=== PATIENT | female | born 1940 | race Hispanic/Latino ===

== ENCOUNTER 2019-12-24 07:11 | Emergency (ER) | payer OTHER ==
[~2019-12-24 07:11] MED LIST: BUDE10.2 IH; CALC-979 PO; DICY20TA11 PO; FLAX SEED PO; FURO20TA4 PO; HYDR-4064 PO; OMEP40CA13 PO; QUIN324C10 PO; SIMV10TA97 PO; VITAMIN D PO
[2019-12-24 07:44] LABS: BASOPHILS % (AUTO) 0.6 % (0.0-5.0); EOSINOPHILS % (AUTO) 3.1 % (0.0-8.0); HEMATOCRIT 36.2 % (36-48); MEAN CORPUSCULAR HEMOGLOBIN 30.4 pg (27.0-33.0); MEAN CORPUSCULAR VOLUME 94.8 fL (79-99); PLATELET COUNT (AUTO) 180 K/uL (130-400); RED BLOOD CELL COUNT(AUTO) 3.82 MIL/uL (4.00-5.50); RED CELL DISTRIBUTION WIDTH 14.4 % (11.0-15.5); WHITE BLOOD COUNT (AUTO) 6.2 K/uL (4.8-10.8)
[2019-12-24 07:52] LABS: CREATININE 1.1 mg/dL (0.5-1.5); POTASSIUM 4.4 mmol/L (3.5-5.1)
[2019-12-24 07:59] LABS: ALBUMIN 3.4 g/dL (3.5-5.0); BILIRUBIN,TOTAL 0.9 mg/dL (0.2-1.0); PARTIAL THROMBOPLASTIN TIME 24.7 SEC (26.3-35.5); PROTHROMBIN TIME 10.5 SEC (9.6-11.6); TOTAL PROTEIN, SERUM 6.9 g/dL (6.0-8.3)
[2019-12-24 08:49] LABS: APPEARANCE,URINE Clear (CLEAR); BILIRUBIN,URINE Negative (NEGATIVE); COLOR,URINE Yellow (YELLOW); GLUCOSE, URINE (UA) Negative (NEGATIVE); KETONES,URINE Negative (NEGATIVE); LEUKOCYTE ESTERASE ,URINE Moderate (NEGATIVE); NITRATE,URINE Negative (NEGATIVE); OCCULT BLOOD,URINE Small (NEGATIVE); PROTEIN,URINE Negative (NEGATIVE)
[2019-12-24 09:19] LABS: BACTERIA,URINE Rare /HPF (None Seen); SQUAMOUS EPITHELIAL CELL,UR Rare /HPF (0-2); WBC,URINE 0-1 /HPF (0-1)
[2019-12-24] MEDS ORDERED: ACETAMINOPHEN EXTRA STRENGTH 500 MG TABLET ONE (09:29)
[2019-12-24] MEDS ORDERED: CEPHALEXIN 500 MG CAPSULE ONE (09:29)
[2019-12-24] MEDS ORDERED: TETANUS/DIPHTHERIA TOXOID [ADULT] 0.5 ML VIAL IM ONE (09:30)
== END 2019-12-24 10:09 | disposition home or self-care (01) ==
LOC: EDH 07:11
DX: S00.10XA Contusion of unspecified eyelid and periocular area, initial encounter (principal); S00.81XA Abrasion of other part of head, initial encounter; N39.0 Urinary tract infection, site not specified; J45.909 Unspecified asthma, uncomplicated; K21.9 Gastro-esophageal reflux disease without esophagitis; W18.39XA Other fall on same level, initial encounter; Y93.89 Activity, other specified; Y92.89 Other specified places as the place of occurrence of the external cause; Y99.8 Other external cause status
CPT/HCPCS: 36415; 70450; 70486; 72125; 80053; 81001; 82550; 84484; 85025; 85610; 85730; 87088; 90471; 90714; 93005

== ENCOUNTER 2021-03-04 10:00 | Inpatient (IN) | payer MEDICARE ==
[~2021-03-04 10:00] MED LIST changes: -BUDE10.2 IH; -CALC-979 PO; -DICY20TA11 PO; -FLAX SEED PO; -FURO20TA4 PO; -HYDR-4064 PO; -QUIN324C10 PO; -SIMV10TA97 PO
[2021-03-04 10:51] LABS: APPEARANCE,URINE Clear (CLEAR); BILIRUBIN,URINE Negative (NEGATIVE); COLOR,URINE Yellow (YELLOW); GLUCOSE, URINE (UA) Negative (NEGATIVE); KETONES,URINE Negative (NEGATIVE); LEUKOCYTE ESTERASE ,URINE Moderate (NEGATIVE); NITRATE,URINE Negative (NEGATIVE); OCCULT BLOOD,URINE Nonhemolyzed Trace (NEGATIVE); PROTEIN,URINE Negative (NEGATIVE)
[2021-03-04 10:53] LABS: BASOPHILS % (AUTO) 0.8 % (0.0-5.0); EOSINOPHILS % (AUTO) 0.8 % (0.0-8.0); HEMATOCRIT 35.5 % (36-48); LYMPHOCYTES % (AUTO) 32.2 % (21.0-51.0); MEAN CORPUSCULAR HEMOGLOBIN 31.5 pg (27.0-33.0); MEAN CORPUSCULAR HGB CONC 32.1 g/dL (32.0-36.0); MEAN CORPUSCULAR VOLUME 98.1 fL (79-99); MONOCYTES % (AUTO) 7.6 % (3.0-13.0); NEUTROPHILS % (AUTO) 58.4 % (40.0-77.0); PLATELET COUNT (AUTO) 188 K/uL (130-400); RED BLOOD CELL COUNT(AUTO) 3.62 MIL/uL (4.00-5.50); WHITE BLOOD COUNT (AUTO) 6.2 K/uL (4.8-10.8)
[2021-03-04 11:03] LABS: INR 1.09 (0.85-1.15); POTASSIUM 4.3 mmol/L (3.5-5.1); PROTHROMBIN TIME 11.2 SEC (9.6-11.6)
[2021-03-04 11:35] LABS: BACTERIA,URINE Rare /HPF (None Seen); SQUAMOUS EPITHELIAL CELL,UR Rare /HPF (0-2); WBC,URINE 0-1 /HPF (0-1)
[2021-03-05 12:42] VITALS: BP 152/60
[2021-03-05] MEDS ORDERED: RIVA3CAP17 PO (15:38)
[2021-03-05] MEDS ORDERED: ASCO100031 PO (15:38)
[2021-03-05] MEDS ORDERED: LOSA25TA41 PO (15:38)
[2021-03-05] MEDS ORDERED: ONDA4TAB4 PO (15:38)
[2021-03-05] MEDS ORDERED: TYLENOL ARTHRITIS PO (15:38)
[2021-03-05] MEDS ORDERED: HYDR-4377 PO (15:38)
[2021-03-05] MEDS ORDERED: ZINC220T4 PO (15:38)
[2021-03-05] MEDS ORDERED: MULT-1296 PO (15:38)
[2021-03-08] VITALS (20 sets, daily range): BP systolic 99–127; BP diastolic 48–86
[2021-03-08] MEDS: CEFAZOLIN SODIUM 1 GM VIAL IVP SCH ×2 (06:00→16:20)
[2021-03-08] MEDS ORDERED: LACTATED RINGERS 1000ML 1,000 ML IV ONE (11:34)
[2021-03-08] MEDS: GENTAMICIN SULFATE 240 MG in SODIUM CHLORIDE 0.9% 100 ML IV SCH (12:57)
[2021-03-08] MEDS ORDERED: DEXAMETHASONE SOD PHOSPHATE 10MG/ML 1ML VIAL ONE (13:31)
[2021-03-08] MEDS ORDERED: LIDOCAINE PF 2% 5ML ABBOJECT ONE (13:31)
[2021-03-08] MEDS ORDERED: PROPOFOL 10 MG/ML 20ML VIAL IV ONE (13:31)
[2021-03-08] MEDS ORDERED: SUCCINYLCHOLINE CHLORIDE 20 MG/ML 10 ML VIAL ONE (13:31)
[2021-03-08] MEDS ORDERED: GLYCOPYRROLATE 1 MG/5 ML SYRINGE ONE (13:32)
[2021-03-08] MEDS ORDERED: MIDAZOLAM HCL 1 MG/ML 2ML VIAL ONE (13:32)
[2021-03-08] MEDS ORDERED: ROCURONIUM 10MG/1ML SYR 10 MG/ML ML ONE ×2 (13:33→16:20)
[2021-03-08] MEDS ORDERED: NEOSTIGMINE 5MG/5ML SYR IV ONE (13:33)
[2021-03-08] MEDS ORDERED: ONDANSETRON HCL 4 MG/2 ML VIAL ONE (13:33)
[2021-03-08] MEDS ORDERED: FENTANYL CITRATE PF 50 MCG/1 ML 2ML VIAL ONE (13:33)
[2021-03-08] MEDS ORDERED: ROPIVACAINE 0.5% 5MG/ML 30ML IJ ONE ×2 (13:34→16:20)
[2021-03-08] MEDS ORDERED: CEFAZOLIN SODIUM 1 GM VIAL ONE (13:56)
[2021-03-08] MEDS ORDERED: CELECOXIB 200 MG CAP ONE (13:57)
[2021-03-08] MEDS ORDERED: ACETAMINOPHEN EXTRA STRENGTH 500 MG TABLET ONE (13:57)
[2021-03-08] MEDS ORDERED: TRANEXAMIC ACID 1000MG/10ML ONE ×2 (15:15→20:48)
[2021-03-08] MEDS ORDERED: CEFAZOLIN SODIUM 1 GM VIAL IRRIG ONE (17:00)
[2021-03-08] MEDS ORDERED: EPHEDRINE SULFATE 50 MG/ML AMPULE ONE (17:15)
[2021-03-08] MEDS ORDERED: TEMAZEPAM 15 MG CAPSULE PO PRN (20:15)
[2021-03-08] MEDS ORDERED: KETOROLAC TROMETHAMINE 15MG/ML IV PRN (20:15)
[2021-03-08] MEDS ORDERED: SODIUM CHLORIDE 0.9% 1000ML 1,000 ML IV SCH (20:15)
[2021-03-08] MEDS ORDERED: CALCIUM CARBONATE 500 MG TABLET PO PRN (20:15)
[2021-03-08] MEDS ORDERED: OXYCODONE HCL 5 MG TAB PO PRN (20:15)
[2021-03-08] MEDS ORDERED: FE FUMARATE/FA/MV, MIN COMB#15 1 TAB PO PRN (20:15)
[2021-03-08] MEDS ORDERED: ONDANSETRON HCL 4 MG/2 ML VIAL IVP PRN (20:15)
[2021-03-08] MEDS ORDERED: DiphenhydrAMINE HCL 50 MG/ML VIAL IVP PRN (20:15)
[2021-03-08] MEDS ORDERED: POTASSIUM CHLORIDE 20 MEQ ERTAB PO PRN (20:15)
[2021-03-08] MEDS ORDERED: LIDOCAINE HCL-MPF 1% 2ML VIAL IV PRN (20:15)
[2021-03-08] MEDS ORDERED: POTASSIUM CHLORIDE 10% ELIXIR 20 MEQ/15 ML UDCUP PO PRN (20:15)
[2021-03-08] MEDS ORDERED: POTASSIUM CHLORIDE 20MEQ/100ML 100 ML IV PRN (20:15)
[2021-03-08] MEDS ORDERED: TRAMADOL HCL 50 MG TABLET PO PRN (20:15)
[2021-03-08] MEDS ORDERED: MEPERIDINE-PF 25 MG/ML SYG ONE (21:01)
[2021-03-08] MEDS: ASPIRIN 81MG TAB.CHEW PO SCH (22:38)
[2021-03-08] MEDS: CELECOXIB 200 MG CAP PO SCH (22:39)
[2021-03-08] MEDS: PREGABALIN 25 MG CAP PO SCH (22:39)
[2021-03-08] MEDS: ACETAMINOPHEN EXTRA STRENGTH 500 MG TABLET PO SCH (22:40)
[2021-03-09] VITALS (9 sets, daily range): BP systolic 95–115; BP diastolic 45–78
[2021-03-09] MEDS: CEFAZOLIN SODIUM 1 GM VIAL IVP SCH ×2 (01:15→10:24)
[2021-03-09] MEDS: OXYCODONE HCL 5 MG TAB PO PRN (03:41)
[2021-03-09] MEDS: ACETAMINOPHEN EXTRA STRENGTH 500 MG TABLET PO SCH ×3 (03:47→21:59)
[2021-03-09 04:00] LABS: HEMATOCRIT 29.5 % (36-48); MEAN CORPUSCULAR HGB CONC 32.2 g/dL (32.0-36.0); MEAN CORPUSCULAR VOLUME 96.4 fL (79-99); RED BLOOD CELL COUNT(AUTO) 3.06 MIL/uL (4.00-5.50); RED CELL DISTRIBUTION WIDTH 13.9 % (11.0-15.5); WHITE BLOOD COUNT (AUTO) 10.1 K/uL (4.8-10.8)
[2021-03-09 04:13] LABS: CREATININE 0.9 mg/dL (0.5-1.5); POTASSIUM 4.1 mmol/L (3.5-5.1)
[2021-03-09] MEDS: GENTAMICIN SULFATE 240 MG in SODIUM CHLORIDE 0.9% 100 ML IV SCH (07:00)
[2021-03-09] MEDS: PREGABALIN 25 MG CAP PO SCH ×2 (10:12→21:59)
[2021-03-09] MEDS: CELECOXIB 200 MG CAP PO SCH ×2 (10:12→21:59)
[2021-03-09] MEDS: POLYETHYLENE GLYCOL 3350 17 GM POWD.PACK PO SCH (10:12)
[2021-03-09] MEDS: ASPIRIN 81MG TAB.CHEW PO SCH ×2 (10:12→21:58)
[2021-03-09] MEDS ORDERED: CEFAZOLIN SODIUM 1 GM VIAL ONE (10:17)
[2021-03-10 04:08] VITALS: BP 109/53
[2021-03-10] MEDS: ACETAMINOPHEN EXTRA STRENGTH 500 MG TABLET PO SCH ×2 (04:59→12:38)
[2021-03-10] MEDS: GENTAMICIN SULFATE 240 MG in SODIUM CHLORIDE 0.9% 100 ML IV SCH (07:00)
[2021-03-10 08:03] VITALS: BP 111/51
[2021-03-10] MEDS: PREGABALIN 25 MG CAP PO SCH (09:15)
[2021-03-10] MEDS: POLYETHYLENE GLYCOL 3350 17 GM POWD.PACK PO SCH (09:15)
[2021-03-10] MEDS: ASPIRIN 81MG TAB.CHEW PO SCH (09:15)
[2021-03-10] MEDS: OXYCODONE HCL 5 MG TAB PO PRN (09:15)
[2021-03-10] MEDS: CELECOXIB 200 MG CAP PO SCH (09:15)
[2021-03-10 11:18] VITALS: BP 104/46
[2021-03-10 16:31] VITALS: BP 108/46
[2021-03-10] MEDS ORDERED: FLUC100T PO (17:25)
[2021-03-10] MEDS ORDERED: CEPH500B PO (17:25)
[2021-03-10] MEDS ORDERED: HYDR-4060 PO ×2 (17:25→17:34)
[2021-03-11] MEDS ORDERED: BISACODYL 10 MG SUPP.RECT RC PRN (20:15)
== END 2021-03-10 18:57 | disposition home health service (06) | DRG 483 ==
LOC: EDSTATUS 10:00 → DAHIP 03-08 10:26 → 4AH 03-08 21:43
PROVIDERS: ADMIT Orthopaedic Surgery; ATTEND Orthopaedic Surgery
PROC: 0RRK00Z Replacement of Left Shoulder Joint with Reverse Ball and Socket Synthetic Substitute, Open Approach (ICD-10-PCS; principal; 2021-03-08 15:25)
PROC: 0PU Upper Bones, Supplement (ICD-10-PCS; 2021-03-08 15:25)
PROC: 3E0T3BZ Introduction of Anesthetic Agent into Peripheral Nerves and Plexi, Percutaneous Approach (ICD-10-PCS; 2021-03-08 15:25)
DX: M75.102 Unspecified rotator cuff tear or rupture of left shoulder, not specified as traumatic (principal); N39.0 Urinary tract infection, site not specified; Z96.652 Presence of left artificial knee joint; M81.0 Age-related osteoporosis without current pathological fracture; G89.29 Other chronic pain; I10 Essential (primary) hypertension; K21.9 Gastro-esophageal reflux disease without esophagitis; B96.20 Unspecified Escherichia coli [E. coli] as the cause of diseases classified elsewhere; M25.612 Stiffness of left shoulder, not elsewhere classified; D64.9 Anemia, unspecified; E78.5 Hyperlipidemia, unspecified; Z20.822 Contact with and (suspected) exposure to COVID-19; Z83.3 Family history of diabetes mellitus; Z82.49 Family history of ischemic heart disease and other diseases of the circulatory system; Z80.9 Family history of malignant neoplasm, unspecified; Z90.49 Acquired absence of other specified parts of digestive tract
CPT/HCPCS: 36415; 73030; 80048; 81001; 85025; 85027; 85610; 87077; 87088; 87186; 87641; 97039; A4565; G0378; J0330; J0690; J1100; J1580; J2001; J2175; J2250; J2405; J2704; J2710; J2795; J3010; J3490; J7120; U0003

== ENCOUNTER 2021-04-11 03:05 | Emergency (ER) | payer MEDICARE ==
[~2021-04-11] VITALS: Ht 144.8 cm; Wt 56.7 kg
[~2021-04-11 03:05] MED LIST changes: +ASCO100031 PO; +CEPH500B PO; +FLUC100T PO; +HYDR-4060 PO; +LOSA25TA41 PO; +MULT-1296 PO; -OMEP40CA13 PO; +OMEP40CA21 PO; +ONDA4TAB4 PO; +RIVA3CAP17 PO; +TYLENOL ARTHRITIS PO; +ZINC220T4 PO
[2021-04-11 03:15] VITALS: BP 144/61
[2021-04-11 03:40] VITALS: BP 134/61
[2021-04-11] MEDS ORDERED: METOCLOPRAMIDE 10 MG/2 ML VIAL IVP ONE (03:45)
[2021-04-11] MEDS ORDERED: FAMOTIDINE 20MG VIAL IV ONE (03:45)
[2021-04-11] MEDS ORDERED: PANTOPRAZOLE 40 MG/VIAL IVP ONE (03:45)
[2021-04-11] MEDS ORDERED: 0.9%NACL 1000ML 1,000 ML IV ONE (03:45)
[2021-04-11] MEDS ORDERED: ONDANSETRON 4MG INJ IVP ONE (03:45)
[2021-04-11 03:51] LABS: BASOPHILS % (AUTO) 0.6 % (0.0-5.0); EOSINOPHILS % (AUTO) 1.9 % (0.0-8.0); HEMATOCRIT 34.4 % (36-48); LYMPHOCYTES % (AUTO) 37.2 % (21.0-51.0); MEAN CORPUSCULAR HEMOGLOBIN 31.4 pg (27.0-33.0); MEAN CORPUSCULAR HGB CONC 31.7 g/dL (32.0-36.0); MEAN CORPUSCULAR VOLUME 99.1 fL (79-99); MONOCYTES % (AUTO) 8.3 % (3.0-13.0); NEUTROPHILS % (AUTO) 51.9 % (40.0-77.0); PLATELET COUNT (AUTO) 182 K/uL (130-400); RED BLOOD CELL COUNT(AUTO) 3.47 MIL/uL (4.00-5.50); RED CELL DISTRIBUTION WIDTH 14.4 % (11.0-15.5)
[2021-04-11 04:00] LABS: APPEARANCE,URINE Clear (CLEAR); BILIRUBIN,URINE Negative (NEGATIVE); COLOR,URINE Yellow (YELLOW); GLUCOSE, URINE (UA) Negative (NEGATIVE); KETONES,URINE 15 mg/dL (NEGATIVE); LEUKOCYTE ESTERASE ,URINE Negative (NEGATIVE); NITRATE,URINE Negative (NEGATIVE); OCCULT BLOOD,URINE Small (NEGATIVE); PROTEIN,URINE Negative (NEGATIVE)
[2021-04-11] MEDS ORDERED: IOHEXOL-350 75 ML VIAL IV ONE (04:00)
[2021-04-11 04:01] LABS: CREATININE 0.8 mg/dL (0.5-1.5)
[2021-04-11 04:06] LABS: ALBUMIN 3.8 g/dL (3.5-5.0); BILIRUBIN,TOTAL 0.8 mg/dL (0.2-1.0); TOTAL PROTEIN, SERUM 7.1 g/dL (6.0-8.3)
[2021-04-11 04:12] LABS: BACTERIA,URINE Rare /HPF (None Seen); WBC,URINE 0-1 /HPF (0-1)
[2021-04-11] MEDS ORDERED: DICY20TA2 PO (05:39)
[2021-04-11] MEDS ORDERED: PANT40TA PO (05:39)
[2021-04-11] MEDS ORDERED: ONDA4TAB10 PO (05:39)
[2021-04-11 05:43] VITALS: BP 143/67
== END 2021-04-11 06:12 | disposition home or self-care (01) ==
LOC: EDH 03:13
DX: K29.70 Gastritis, unspecified, without bleeding (principal); E86.0 Dehydration; K21.9 Gastro-esophageal reflux disease without esophagitis; G89.29 Other chronic pain; M25.512 Pain in left shoulder; Z79.899 Other long term (current) drug therapy
CPT/HCPCS: 36415; 71045; 74177; 80053; 81001; 83690; 84484; 85025; 87088; 93005; 96361; 96374; 96375; 99285; C9113; J2405; J2765; J3490; J7030; Q9967

== ENCOUNTER 2021-05-23 01:24 | Observation (INO) | payer MEDICARE ==
[2021-05-23] VITALS (11 sets, daily range): BP systolic 117–156; BP diastolic 46–89
[~2021-05-23] VITALS: Ht 144.8 cm; Wt 52.8 kg
[~2021-05-23 01:24] MED LIST changes: +BACL10TA PO; +DICY20TA2 PO; +MELO15TA12 PO; +MIRT-22 PO; +OMEP20TA25 PO; +ONDA4TAB10 PO; +PANT40TA PO
[2021-05-23] MEDS ORDERED: PANTOPRAZOLE 40 MG/VIAL IVP SCH (02:30)
[2021-05-23] MEDS ORDERED: FAMOTIDINE 20MG VIAL IV ONE (02:30)
[2021-05-23] MEDS ORDERED: ONDANSETRON 4MG INJ IVP ONE (02:30)
[2021-05-23 02:47] LABS: APPEARANCE,URINE CLEAR (CLEAR); BILIRUBIN,URINE NEGATIVE (NEGATIVE); COLOR,URINE YELLOW (YELLOW); GLUCOSE, URINE (UA) NEGATIVE (NEGATIVE); KETONES,URINE 5 mg/dL (NEGATIVE); LEUKOCYTE ESTERASE ,URINE SMALL (NEGATIVE); NITRATE,URINE NEGATIVE (NEGATIVE); OCCULT BLOOD,URINE MODERATE (NEGATIVE); PROTEIN,URINE TRACE mg/dL (NEGATIVE); UROBILINOGEN,URINE 0.2 mg/dL (0.2-1.0)
[2021-05-23 02:49] LABS: BASOPHILS % (AUTO) 0.2 % (0.0-5.0); EOSINOPHILS % (AUTO) 0.8 % (0.0-8.0); LYMPHOCYTES % (AUTO) 4.3 % (21.0-51.0); MEAN CORPUSCULAR HGB CONC 32.7 g/dL (32.0-36.0); MEAN CORPUSCULAR VOLUME 97.6 fL (79-99); MONOCYTES % (AUTO) 3.8 % (3.0-13.0); NEUTROPHILS % (AUTO) 90.5 % (40.0-77.0); PLATELET COUNT (AUTO) 212 K/uL (130-400); RED BLOOD CELL COUNT(AUTO) 3.38 MIL/uL (4.00-5.50); RED CELL DISTRIBUTION WIDTH 13.8 % (11.0-15.5); WHITE BLOOD COUNT (AUTO) 15.5 K/uL (4.8-10.8)
[2021-05-23 02:59] LABS: CREATININE 0.8 mg/dL (0.5-1.5)
[2021-05-23 03:00] LABS: BACTERIA,URINE Moderate /HPF (None Seen); SQUAMOUS EPITHELIAL CELL,UR Few /HPF (0-2)
[2021-05-23 03:03] LABS: ALBUMIN 3.4 g/dL (3.5-5.0); BILIRUBIN,TOTAL 0.6 mg/dL (0.2-1.0); TOTAL PROTEIN, SERUM 7.2 g/dL (6.0-8.3)
[2021-05-23] MEDS ORDERED: 0.9%NACL 1000ML 1,000 ML IV ONE (04:30)
[2021-05-23] MEDS ORDERED: LEVOFLOXACIN 750 MG/D5W 150 ML 150 ML IV ONE (06:00)
[2021-05-23] MEDS ORDERED: KETOROLAC 15MG/ML VIAL (15MG/ML) IV ONE (06:30)
[2021-05-23] MEDS ORDERED: ONDANSETRON 4MG INJ IV PRN (07:30)
[2021-05-23] MEDS ORDERED: 0.9%NACL 1000ML 1,000 ML IV SCH (07:30)
[2021-05-23] MEDS ORDERED: LACTULOSE 20 GM/30 ML UDCUP PO PRN (07:30)
[2021-05-23] MEDS: METRONIDAZOLE 500MG/100ML BAG 100 ML IV SCH ×3 (08:08→23:25)
[2021-05-23] MEDS: CEFTRIAXONE 1G VIAL IVP SCH (08:08)
[2021-05-23] MEDS: PANTOPRAZOLE 40 MG/VIAL IVP SCH (08:50)
[2021-05-23] MEDS: ENOXAPARIN SODIUM 30 MG/0.3 ML SQ SCH (08:51)
[2021-05-23] MEDS ORDERED: MELO10CA3 PO (12:18)
[2021-05-23] MEDS ORDERED: BACL10TA PO (12:18)
[2021-05-23] MEDS: LACTATED RINGERS 1000ML 1,000 ML IV SCH (15:00)
[2021-05-24] VITALS (7 sets, daily range): BP systolic 120–145; BP diastolic 56–76
[2021-05-24] MEDS: LACTATED RINGERS 1000ML 1,000 ML IV SCH ×2 (06:18→21:48)
[2021-05-24 06:58] LABS: BASOPHILS % (AUTO) 0.5 % (0.0-5.0); EOSINOPHILS % (AUTO) 2.4 % (0.0-8.0); HEMATOCRIT 28.1 % (36-48); LYMPHOCYTES % (AUTO) 16.7 % (21.0-51.0); MEAN CORPUSCULAR HEMOGLOBIN 30.9 pg (27.0-33.0); MEAN CORPUSCULAR VOLUME 96.6 fL (79-99); MONOCYTES % (AUTO) 13.1 % (3.0-13.0); NEUTROPHILS % (AUTO) 66.9 % (40.0-77.0); PLATELET COUNT (AUTO) 181 K/uL (130-400); RED BLOOD CELL COUNT(AUTO) 2.91 MIL/uL (4.00-5.50); RED CELL DISTRIBUTION WIDTH 13.7 % (11.0-15.5); WHITE BLOOD COUNT (AUTO) 7.9 K/uL (4.8-10.8)
[2021-05-24 07:03] LABS: CREATININE 0.8 mg/dL (0.5-1.5); MAGNESIUM 1.6 mg/dL (1.80-2.40); POTASSIUM 3.5 mmol/L (3.5-5.1)
[2021-05-24] MEDS: CEFTRIAXONE 1G VIAL IVP SCH (08:40)
[2021-05-24] MEDS: METRONIDAZOLE 500MG/100ML BAG 100 ML IV SCH ×3 (08:40→21:53)
[2021-05-24] MEDS: PANTOPRAZOLE 40 MG/VIAL IVP SCH (08:40)
[2021-05-24] MEDS: ENOXAPARIN SODIUM 30 MG/0.3 ML SQ SCH (08:40)
[2021-05-24] MEDS: ACETAMINOPHEN 325 MG TAB PO PRN ×2 (08:48→22:41)
[2021-05-24] MEDS ORDERED: MAGNESIUM 2GM PREMIX 50ML 50 ML IV SCH (13:00)
[2021-05-24] MEDS ORDERED: MIRT-72 PO (13:23)
[2021-05-25] VITALS: BP 162/60
[2021-05-25] MEDS ORDERED: NON-FORMULARY MEDICATION 1 EACH (Omeprazole 20 MG) PO PRN (02:00)
[2021-05-25 03:59] VITALS: BP 134/77
[2021-05-25] MEDS: BACLOFEN 10 MG TABLET PO PRN ×2 (04:08→22:44)
[2021-05-25] MEDS: METRONIDAZOLE 500MG/100ML BAG 100 ML IV SCH (06:18)
[2021-05-25 07:27] LABS: CREATININE 0.9 mg/dL (0.5-1.5); MAGNESIUM 2.1 mg/dL (1.80-2.40); POTASSIUM 3.2 mmol/L (3.5-5.1)
[2021-05-25 07:51] VITALS: BP 142/69
[2021-05-25] MEDS ORDERED: **HM**(Zinc Sulfate (Zinc) 50 MG PO SCH (09:00)
[2021-05-25] MEDS: RIVASTIGMINE TARTRATE 3 MG PO SCH (09:00)
[2021-05-25] MEDS ORDERED: MULTIVITAMIN TABLET PO SCH (09:00)
[2021-05-25] MEDS: LOSARTAN 25 MG TABLET PO SCH (09:12)
[2021-05-25] MEDS: PANTOPRAZOLE 40 MG/VIAL IVP SCH (09:12)
[2021-05-25] MEDS: ASCORBIC ACID 500 MG TAB PO SCH (09:12)
[2021-05-25] MEDS: ENOXAPARIN SODIUM 30 MG/0.3 ML SQ SCH (09:13)
[2021-05-25] MEDS: CEFTRIAXONE 1G VIAL IVP SCH (09:13)
[2021-05-25] MEDS ORDERED: KCL 20 MEQ ERTAB PO ONE (10:00)
[2021-05-25] MEDS ORDERED: LOPERAMIDE HCL 2 MG CAP PO ONE (10:00)
[2021-05-25] MEDS ORDERED: LOPERAMIDE HCL 2 MG CAP PO PRN (10:00)
[2021-05-25 10:47] VITALS: BP 137/61
[2021-05-25] MEDS: LEVOFLOXACIN 500 MG TABLET PO SCH (11:38)
[2021-05-25] MEDS ORDERED: KCL 20 MEQ ERTAB PO SCH (12:00)
[2021-05-25 13:02] LABS: BASOPHILS % (AUTO) 0.3 % (0.0-5.0); HEMATOCRIT 32.6 % (36-48); LYMPHOCYTES % (AUTO) 18.6 % (21.0-51.0); MEAN CORPUSCULAR HEMOGLOBIN 31.1 pg (27.0-33.0); MEAN CORPUSCULAR HGB CONC 31.6 g/dL (32.0-36.0); MEAN CORPUSCULAR VOLUME 98.5 fL (79-99); MONOCYTES % (AUTO) 8.7 % (3.0-13.0); NEUTROPHILS % (AUTO) 68.9 % (40.0-77.0); PLATELET COUNT (AUTO) 204 K/uL (130-400); RED BLOOD CELL COUNT(AUTO) 3.31 MIL/uL (4.00-5.50); RED CELL DISTRIBUTION WIDTH 13.6 % (11.0-15.5); WHITE BLOOD COUNT (AUTO) 9.3 K/uL (4.8-10.8)
[2021-05-25] MEDS: LACTATED RINGERS 1000ML 1,000 ML IV SCH (13:12)
[2021-05-25 13:43] LABS: THYROID STIMULATING HORMONE 1.54 uIU/mL (0.36-3.74)
[2021-05-25 13:51] LABS: % IRON SATURATION 13.4 % (22-44)
[2021-05-25 13:58] LABS: ERYTHROCYTE SEDIMENTATION RATE 15 MM/HR (0-30)
[2021-05-25 17:02] VITALS: BP 143/64
[2021-05-25] MEDS: ACETAMINOPHEN 325 MG TAB PO PRN ×2 (17:45→20:30)
[2021-05-25 19:00] VITALS: BP 136/58
[2021-05-25] MEDS ORDERED: IRON SUCROSE COMPLEX 300 MG in 0.9%NACL 50ML 50 ML IV SCH (19:30)
[2021-05-25] MEDS ORDERED: [UNRECOGNIZED DRUG - REMARK] MISC SCH (19:30)
[2021-05-25] MEDS ORDERED: MIRTAZAPINE 15 MG TABLET PO SCH (21:00)
[2021-05-26] VITALS: BP 141/64
[2021-05-26 04:00] VITALS: BP 128/58
[2021-05-26] MEDS: LACTATED RINGERS 1000ML 1,000 ML IV SCH (04:36)
[2021-05-26 04:57] LABS: HEMATOCRIT 28.9 % (36-48); MEAN CORPUSCULAR HEMOGLOBIN 31.6 pg (27.0-33.0); MEAN CORPUSCULAR HGB CONC 32.5 g/dL (32.0-36.0); MEAN CORPUSCULAR VOLUME 97.3 fL (79-99); RED BLOOD CELL COUNT(AUTO) 2.97 MIL/uL (4.00-5.50); RED CELL DISTRIBUTION WIDTH 13.7 % (11.0-15.5); WHITE BLOOD COUNT (AUTO) 6.9 K/uL (4.8-10.8)
[2021-05-26 05:14] LABS: CREATININE 0.9 mg/dL (0.5-1.5); CRP QUANTITATIVE 8.5 mg/L (0.00-9.0); MAGNESIUM 2.2 mg/dL (1.80-2.40); PHOSPHORUS 2.6 mg/dL (2.5-4.9); POTASSIUM 3.8 mmol/L (3.5-5.1)
[2021-05-26 07:30] VITALS: BP 145/65
[2021-05-26] MEDS ORDERED: LEVO500T89 PO (08:43)
[2021-05-26] MEDS ORDERED: METR500T PO (08:46)
[2021-05-26] MEDS: RIVASTIGMINE TARTRATE 3 MG PO SCH (09:00)
[2021-05-26] MEDS: ASCORBIC ACID 500 MG TAB PO SCH (09:49)
[2021-05-26] MEDS: LEVOFLOXACIN 500 MG TABLET PO SCH (09:49)
[2021-05-26] MEDS: PANTOPRAZOLE 40 MG/VIAL IVP SCH (09:49)
[2021-05-26] MEDS: ENOXAPARIN SODIUM 30 MG/0.3 ML SQ SCH (09:50)
[2021-05-26] MEDS: LOSARTAN 25 MG TABLET PO SCH (09:54)
[2021-05-26] MEDS ORDERED: IRON SUCROSE COMPLEX 300 MG in 0.9%NACL 50ML 50 ML IV SCH (10:03)
[2021-05-26] MEDS ORDERED: COMPOUND IV MISC 1 EACH IVSOLN MISC PRN (10:30)
[2021-05-26 11:00] VITALS: BP 147/68
== END 2021-05-26 13:40 | disposition home or self-care (01) ==
LOC: EDH 01:24 → EDHIP 06:30 → INTOOBSV 06:30 → 3CH 05-24 10:23
PROVIDERS: ADMIT Internal Medicine; ATTEND Internal Medicine
DX: K52.9 Noninfective gastroenteritis and colitis, unspecified (principal); I12.9 Hypertensive chronic kidney disease with stage 1 through stage 4 chronic kidney disease, or unspecified chronic kidney disease; N18.2 Chronic kidney disease, stage 2 (mild); E78.5 Hyperlipidemia, unspecified; M19.90 Unspecified osteoarthritis, unspecified site; N39.0 Urinary tract infection, site not specified; B96.20 Unspecified Escherichia coli [E. coli] as the cause of diseases classified elsewhere; B96.5 Pseudomonas (aeruginosa) (mallei) (pseudomallei) as the cause of diseases classified elsewhere; M43.10 Spondylolisthesis, site unspecified; M47.815 Spondylosis without myelopathy or radiculopathy, thoracolumbar region; K57.90 Diverticulosis of intestine, part unspecified, without perforation or abscess without bleeding; E86.0 Dehydration; E86.1 Hypovolemia; K56.609 Unspecified intestinal obstruction, unspecified as to partial versus complete obstruction; Z79.899 Other long term (current) drug therapy; Z98.890 Other specified postprocedural states; Z96.612 Presence of left artificial shoulder joint; Z96.652 Presence of left artificial knee joint
CPT/HCPCS: 36415 ×4; 71045; 74021; 74176; 80048 ×3; 80053; 81001; 82607; 82746; 83540; 83550; 83605; 83690; 83735 ×3; 84100; 84132; 84145 ×3; 84443; 84484; 85025 ×3; 85027; 85045; 85651 ×2; 86140 ×2; 87046; 87077 ×2; 87088 ×2; 87186 ×2; 87324; 87507; 93005; 96361 ×2; 96365; 96366 ×4; 96367 ×2; 96372 ×4; 96375; 96376 ×3; 99285; C9113 ×4; G0378 ×77; J0696 ×3; J1650 ×4; J1756 ×2; J1885; J1956; J2405 ×2; J3475; J3490 ×8; J7120 ×4; J7030

== ENCOUNTER 2021-06-02 16:38 | Observation (INO) | payer MEDICARE ==
[~2021-06-02] VITALS: Ht 149.9 cm; Wt 53.8 kg
[~2021-06-02 16:38] MED LIST changes: -CEPH500B PO; -DICY20TA2 PO; -FLUC100T PO; +LEVO500T89 PO; +MELO10CA3 PO; +METR500T PO; +MIRT-72 PO; -OMEP40CA21 PO; -ONDA4TAB10 PO; -PANT40TA PO
[2021-06-02 16:40] VITALS: BP 125/61
[2021-06-02 18:54] LABS: BASOPHILS % (AUTO) 0.8 % (0.0-5.0); HEMATOCRIT 27.3 % (36-48); MEAN CORPUSCULAR HEMOGLOBIN 31.5 pg (27.0-33.0); MEAN CORPUSCULAR HGB CONC 32.2 g/dL (32.0-36.0); MEAN CORPUSCULAR VOLUME 97.8 fL (79-99); MONOCYTES % (AUTO) 9.6 % (3.0-13.0); NEUTROPHILS % (AUTO) 56.3 % (40.0-77.0); PLATELET COUNT (AUTO) 285 K/uL (130-400); RED BLOOD CELL COUNT(AUTO) 2.79 MIL/uL (4.00-5.50); WHITE BLOOD COUNT (AUTO) 8.6 K/uL (4.8-10.8)
[2021-06-02 18:58] VITALS: BP 125/61
[2021-06-02 19:10] LABS: CREATININE 0.9 mg/dL (0.5-1.5); POTASSIUM 3.2 mmol/L (3.5-5.1)
[2021-06-02 19:15] LABS: BILIRUBIN,TOTAL 0.4 mg/dL (0.2-1.0)
[2021-06-02 19:52] LABS: INR 1.13 (0.85-1.15); PROTHROMBIN TIME 12.2 SEC (9.6-11.6)
[2021-06-02 19:54] LABS: PARTIAL THROMBOPLASTIN TIME 24.2 SEC (26.3-35.5)
[2021-06-02] MEDS: 0.9%NACL 1000ML 1,000 ML IV SCH (21:30)
[2021-06-02] MEDS ORDERED: KCL 20 MEQ ERTAB PO PRN ×2 (21:30→22:30)
[2021-06-02] MEDS ORDERED: POTASSIUM CHLORIDE 20MEQ/100ML 100 ML IV PRN ×2 (21:30→22:30)
[2021-06-02] MEDS ORDERED: POTASSIUM CHLORIDE 10% ELIXIR 20 MEQ/15 ML UDCUP PO PRN ×2 (21:30→22:30)
[2021-06-02] MEDS ORDERED: PANTOPRAZOLE SODIUM 80 MG in NS 100ML IVP SCH (21:30)
[2021-06-02] MEDS ORDERED: LIDOCAINE HCL-MPF 1% 2ML VIAL IJ PRN (21:30)
[2021-06-02] MEDS ORDERED: ACETAMINOPHEN 325 MG TAB PO PRN (22:30)
[2021-06-02] MEDS ORDERED: NITROGLYCERIN 0.4 MG SL TAB SL PRN (22:30)
[2021-06-02] MEDS ORDERED: MORPHINE 2 MG SYG IV PRN (22:30)
[2021-06-02] MEDS ORDERED: ONDANSETRON 4MG INJ IV PRN (22:30)
[2021-06-02] MEDS ORDERED: GUAIFENESIN-DM 200/20 MG 10 ML PO PRN (22:30)
[2021-06-02] MEDS ORDERED: LIDOCAINE HCL-MPF 1% 2ML VIAL IV PRN (22:30)
[2021-06-02] MEDS ORDERED: DIPHENHYDRAMINE HCL 25 MG CAPSULE PO PRN (22:30)
[2021-06-02] MEDS ORDERED: PANTOPRAZOLE 40 MG/VIAL ONE (22:36)
[2021-06-03] VITALS (10 sets, daily range): BP systolic 110–135; BP diastolic 58–76
[2021-06-03 00:57] LABS: HEMATOCRIT 21.8 % (36-48)
[2021-06-03] MEDS ORDERED: 0.9% NACL 250ML 250 ML ONE (03:35)
[2021-06-03 06:46] LABS: HEMATOCRIT 23.3 % (36-48)
[2021-06-03 09:45] LABS: BASOPHILS % (AUTO) 0.8 % (0.0-5.0); EOSINOPHILS % (AUTO) 2.2 % (0.0-8.0); HEMATOCRIT 22.9 % (36-48); LYMPHOCYTES % (AUTO) 33.5 % (21.0-51.0); MEAN CORPUSCULAR HEMOGLOBIN 31.1 pg (27.0-33.0); MEAN CORPUSCULAR HGB CONC 33.2 g/dL (32.0-36.0); MEAN CORPUSCULAR VOLUME 93.9 fL (79-99); NEUTROPHILS % (AUTO) 55.2 % (40.0-77.0); PLATELET COUNT (AUTO) 222 K/uL (130-400); RED BLOOD CELL COUNT(AUTO) 2.44 MIL/uL (4.00-5.50); RED CELL DISTRIBUTION WIDTH 15.6 % (11.0-15.5); WHITE BLOOD COUNT (AUTO) 7.9 K/uL (4.8-10.8)
[2021-06-03 09:52] LABS: CREATININE 0.7 mg/dL (0.5-1.5); POTASSIUM 3.9 mmol/L (3.5-5.1)
[2021-06-03] MEDS: 0.9%NACL 1000ML 1,000 ML IV SCH (15:13)
[2021-06-03] MEDS ORDERED: DEXTROSE 5%-WATER 1,000 ML IV SCH (15:30)
[2021-06-03] MEDS ORDERED: PEG 3350/NA SULF,BICARB,CL/KCL 4000 ML SOLN PO SCH ×2 (15:30)
[2021-06-03] MEDS ORDERED: PEG 3350/NA SULF,BICARB,CL/KCL 4000 ML SOLN ONE (15:32)
[2021-06-03] MEDS: METRONIDAZOLE 500MG/100ML BAG 100 ML IVPB SCH ×2 (15:55→21:46)
[2021-06-04] VITALS (25 sets, daily range): BP systolic 103–145; BP diastolic 56–72
[2021-06-04] MEDS: METRONIDAZOLE 500MG/100ML BAG 100 ML IVPB SCH ×2 (06:06→13:20)
[2021-06-04] MEDS ORDERED: PROPOFOL 10 MG/ML 20ML VIAL IV ONE ×2 (06:58)
[2021-06-04] MEDS ORDERED: LIDOCAINE PF 100MG/5ML (2%) SYRINGE 5ML ONE (06:58)
[2021-06-04 10:26] LABS: HEMATOCRIT 22.6 % (36-48)
[2021-06-04 11:21] LABS: CREATININE 0.6 mg/dL (0.5-1.5); POTASSIUM 3.1 mmol/L (3.5-5.1)
[2021-06-04] MEDS ORDERED: PANT40TA PO (11:28)
== END 2021-06-04 17:50 | disposition home or self-care (01) ==
LOC: EDH 16:38 → INTOOBSV 22:03 → EDHIP 22:03 → 3DH 06-03 00:40
PROVIDERS: ADMIT Hospitalist; ATTEND Hospitalist
DX: K92.2 Gastrointestinal hemorrhage, unspecified (principal); Z20.822 Contact with and (suspected) exposure to COVID-19; D62 Acute posthemorrhagic anemia; I10 Essential (primary) hypertension; E87.6 Hypokalemia; E78.00 Pure hypercholesterolemia, unspecified; E87.0 Hyperosmolality and hypernatremia; E78.5 Hyperlipidemia, unspecified; K31.7 Polyp of stomach and duodenum; K52.9 Noninfective gastroenteritis and colitis, unspecified; M19.90 Unspecified osteoarthritis, unspecified site; K56.609 Unspecified intestinal obstruction, unspecified as to partial versus complete obstruction; N39.0 Urinary tract infection, site not specified; Z96.612 Presence of left artificial shoulder joint; Z96.652 Presence of left artificial knee joint; Z79.899 Other long term (current) drug therapy; Z98.890 Other specified postprocedural states
CPT/HCPCS: 36415 ×3; 36430; 43239; 43251; 45378; 73030; 74176; 80048 ×2; 80053; 82270; 83735; 85014 ×3; 85018 ×3; 85025 ×2; 85610; 85730; 86850; 86900; 86901; 86923 ×2; 87635; 93005; 96361 ×4; 96365; 96366 ×2; 96367; 96375; 99285; A4215; A4222; A4606; A4620; A4657; C9113 ×4; G0378; J2001; J2405; J2704 ×2; J3480; J3490 ×4; J7030 ×3; J7050; J7070; P9016

== ENCOUNTER 2022-07-26 16:33 | Emergency (ER) | payer MEDICARE ==
[~2022-07-26] VITALS: Ht 144.8 cm; Wt 53.1 kg
[~2022-07-26 16:33] MED LIST changes: +LEVO-70 PO; -LEVO500T89 PO; +OMEP20TA20 PO; -OMEP20TA25 PO; +PANT40TA PO; +PANT40TA55 PO
[2022-07-26 17:12] LABS: BASOPHILS % (AUTO) 0.3 % (0.0-5.0); EOSINOPHILS % (AUTO) 0.1 % (0.0-8.0); HEMATOCRIT 35.2 % (36-48); LYMPHOCYTES % (AUTO) 18.5 % (21.0-51.0); MEAN CORPUSCULAR HEMOGLOBIN 30.7 pg (27.0-33.0); MEAN CORPUSCULAR HGB CONC 32.7 g/dL (32.0-36.0); MEAN CORPUSCULAR VOLUME 93.9 fL (79-99); MONOCYTES % (AUTO) 4.1 % (3.0-13.0); NEUTROPHILS % (AUTO) 76.8 % (40.0-77.0); PLATELET COUNT (AUTO) 202 K/uL (130-400); RED BLOOD CELL COUNT(AUTO) 3.75 MIL/uL (4.00-5.50); RED CELL DISTRIBUTION WIDTH 14.6 % (11.0-15.5); WHITE BLOOD COUNT (AUTO) 10.1 K/uL (4.8-10.8)
[2022-07-26 17:30] VITALS: BP 152/68
[2022-07-26 17:33] LABS: ALBUMIN 3.6 g/dL (3.5-5.0); TOTAL PROTEIN, SERUM 7.2 g/dL (6.0-8.3)
[2022-07-26 17:34] LABS: APPEARANCE,URINE CLEAR (CLEAR); BILIRUBIN,URINE NEGATIVE (NEGATIVE); COLOR,URINE LIGHT-YELLOW (YELLOW); GLUCOSE, URINE (UA) NEGATIVE (NEGATIVE); KETONES,URINE 20 mg/dL (NEGATIVE); LEUKOCYTE ESTERASE ,URINE 25 Leu/uL (NEGATIVE); NITRATE,URINE NEGATIVE (NEGATIVE); OCCULT BLOOD,URINE LARGE (NEGATIVE); PH,URINE 6.5 (5.0-8.0); PROTEIN,URINE NEGATIVE (NEGATIVE); UROBILINOGEN,URINE 0.2 mg/dL (0.2-1.0)
[2022-07-26 17:42] LABS: BACTERIA,URINE RARE /HPF (None Seen); MUCUS,URINE RARE LPF (None Seen); SQUAMOUS EPITHELIAL CELL,UR FEW /HPF (0-2)
[2022-07-26] MEDS ORDERED: DICYCLOMINE HCL 10 MG/5 ML ML PO ONE (18:00)
[2022-07-26] MEDS ORDERED: LIDOCAINE HCL 2% VISCOUS 15 ML UDCUP PO ONE (18:00)
[2022-07-26] MEDS ORDERED: MAG/ALUM/SIMETH 30 ML UDCUP PO ONE (18:00)
[2022-07-26] MEDS ORDERED: LACT10SO32 PO (18:32)
[2022-07-26] MEDS ORDERED: CEPH500B PO (18:32)
== END 2022-07-26 18:47 | disposition home or self-care (01) ==
LOC: EDH 16:33
DX: N39.0 Urinary tract infection, site not specified (principal); K59.00 Constipation, unspecified; R11.2 Nausea with vomiting, unspecified; I10 Essential (primary) hypertension; M19.90 Unspecified osteoarthritis, unspecified site; Z79.899 Other long term (current) drug therapy; Z98.890 Other specified postprocedural states
CPT/HCPCS: 36415; 80053; 81001; 83690; 84484; 85025; 93005

== ENCOUNTER 2022-12-18 12:28 | Emergency (ER) | payer MEDICARE ==
[~2022-12-18] VITALS: Ht 142.2 cm; Wt 50.8 kg
[~2022-12-18 12:28] MED LIST changes: +CEPH500B PO; +LACT10SO32 PO
[2022-12-18 13:02] LABS: BASOPHILS % (AUTO) 0.4 % (0.0-5.0); EOSINOPHILS % (AUTO) 0.1 % (0.0-8.0); LYMPHOCYTES % (AUTO) 32.2 % (21.0-51.0); MEAN CORPUSCULAR HGB CONC 32.1 g/dL (32.0-36.0); MEAN CORPUSCULAR VOLUME 96.6 fL (79-99); MONOCYTES % (AUTO) 19.6 % (3.0-13.0); NEUTROPHILS % (AUTO) 47.3 % (40.0-77.0); PLATELET COUNT (AUTO) 172 K/uL (130-400); RED BLOOD CELL COUNT(AUTO) 3.52 MIL/uL (4.00-5.50); WHITE BLOOD COUNT (AUTO) 7.1 K/uL (4.8-10.8)
[2022-12-18 13:08] LABS: POTASSIUM 3.8 mmol/L (3.5-5.1)
[2022-12-18 13:13] LABS: ALBUMIN 2.9 g/dL (3.5-5.0); TOTAL PROTEIN, SERUM 6.5 g/dL (6.0-8.3)
[2022-12-18] MEDS ORDERED: IOHEXOL 350 MG/ML 100ML INFUS..BTL IV ONE (15:52)
[2022-12-18] MEDS ORDERED: 0.9% NACL 500ML IV.SOLN 500 ML IV ONE (16:00)
[2022-12-18] MEDS ORDERED: NIRM1TAB PO (18:14)
[2022-12-18 18:34] VITALS: BP 156/67
[2022-12-18] MEDS ORDERED: ONDA4TAB10 PO (18:45)
[2022-12-23] MEDS ORDERED: MEMA5TAB42 PO (16:01)
== END 2022-12-18 18:47 | disposition home or self-care (01) ==
LOC: EDH 12:28
DX: U07.1 COVID-19 (principal); J40 Bronchitis, not specified as acute or chronic; I10 Essential (primary) hypertension; Z79.899 Other long term (current) drug therapy; M19.90 Unspecified osteoarthritis, unspecified site
CPT/HCPCS: 99285; 71275; 71045; 87635; 84484 ×2; 80053; 85025; 85378; 87046; 87804 ×2; 36415; 93005 ×2; C9803; Q9967

== ENCOUNTER 2024-01-25 10:59 | Emergency (ER) | payer MEDICARE ==
[~2024-01-25] VITALS: Ht 144.8 cm; Wt 54.4 kg
[~2024-01-25 10:59] MED LIST changes: -ASCO100031 PO; -BACL10TA PO; -CEPH500B PO; -HYDR-4060 PO; -LACT10SO32 PO; -MELO10CA3 PO; +MEMA5TAB42 PO; -METR500T PO; -MIRT-22 PO; -MIRT-72 PO; -MULT-1296 PO; +NIRM1TAB PO; -OMEP20TA20 PO; +ONDA4TAB10 PO; -ONDA4TAB4 PO; -PANT40TA PO; -RIVA3CAP17 PO; -TYLENOL ARTHRITIS PO; -VITAMIN D PO; -ZINC220T4 PO
[2024-01-25 11:24] LABS: BASOPHILS # (AUTO) 0.05 K/uL (0.00-0.20); BASOPHILS % (AUTO) 0.9 % (0.0-5.0); EOSINOPHILS # (AUTO) 0.08 K/uL (0.00-0.70); EOSINOPHILS % (AUTO) 1.5 % (0.0-8.0); IMMATURE GRANULOCYTE ABSOLUTE 0.01 K/uL (0-1); LYMPHOCYTES # (AUTO) 1.9 K/uL (1.0-4.8); LYMPHOCYTES % (AUTO) 36.1 % (21.0-51.0); MEAN CORPUSCULAR HEMOGLOBIN 30.4 pg (27.0-33.0); MEAN CORPUSCULAR HGB CONC 32.6 g/dL (32.0-36.0); MEAN CORPUSCULAR VOLUME 93.3 fL (79-99); MONOCYTES # (AUTO) 0.4 K/uL (0.1-1.0); MONOCYTES % (AUTO) 7.3 % (3.0-13.0); NEUTROPHILS # (AUTO) 2.9 K/uL (1.8-7.7); PLATELET COUNT (AUTO) 178 K/uL (130-400); RED BLOOD CELL COUNT(AUTO) 3.75 MIL/uL (4.00-5.50); RED CELL DISTRIBUTION WIDTH 13.9 % (11.0-15.5); WHITE BLOOD COUNT (AUTO) 5.4 K/uL (4.8-10.8)
[2024-01-25 11:32] LABS: APPEARANCE,URINE CLEAR (CLEAR); BILIRUBIN,URINE NEGATIVE (NEGATIVE); COLOR,URINE COLORLESS (YELLOW); GLUCOSE, URINE (UA) NEGATIVE (NEGATIVE); KETONES,URINE NEGATIVE (NEGATIVE); LEUKOCYTE ESTERASE ,URINE NEGATIVE Leu/uL (NEGATIVE); NITRATE,URINE NEGATIVE (NEGATIVE); OCCULT BLOOD,URINE SMALL (NEGATIVE); PROTEIN,URINE NEGATIVE (NEGATIVE); UROBILINOGEN,URINE 0.2 mg/dL (0.2-1.0)
[2024-01-25 11:33] LABS: POTASSIUM 4.1 mmol/L (3.5-5.1)
[2024-01-25 11:38] LABS: ALBUMIN 3.6 g/dL (3.5-5.0); BILIRUBIN,TOTAL 0.6 mg/dL (0.2-1.0); TOTAL PROTEIN, SERUM 7.3 g/dL (6.0-8.3)
[2024-01-25 11:40] LABS: ADD UA MICROSCOPIC YES
[2024-01-25 11:41] LABS: BACTERIA,URINE RARE /HPF (None Seen); MUCUS,URINE RARE LPF (None Seen)
[2024-01-25] MEDS: 0.9% NACL 500ML IV.SOLN 500 ML IV ONE (13:32)
[2024-01-25] MEDS ORDERED: IOHEXOL-350 75 ML VIAL IV ONE (14:55)
[2024-01-25 16:23] VITALS: BP 152/63; PULSE 68; RESP 18; O2SAT 99
== END 2024-01-25 16:18 | disposition home or self-care (01) ==
LOC: EDH 10:59
DX: R10.9 Unspecified abdominal pain (principal); F03.90 Unspecified dementia, unspecified severity, without behavioral disturbance, psychotic disturbance, mood disturbance, and anxiety; I10 Essential (primary) hypertension; K21.9 Gastro-esophageal reflux disease without esophagitis; M19.90 Unspecified osteoarthritis, unspecified site; Z79.1 Long term (current) use of non-steroidal anti-inflammatories (NSAID); Z79.899 Other long term (current) drug therapy
CPT/HCPCS: 99285; 74177; 96360; 71045; 84484; 80053; 83690; 85025; 81001; 36415; 93005; J7040; Q9967; 96361

== ENCOUNTER 2024-01-26 18:06 | Emergency (ER) | payer MEDICARE ==
[~2024-01-26] VITALS: Ht 144.8 cm; Wt 56.7 kg
[2024-01-26 18:18] VITALS: BP 120/58; PULSE 81; RESP 20
[2024-01-26 18:47] LABS: BASOPHILS # (AUTO) 0.05 K/uL (0.00-0.20); BASOPHILS % (AUTO) 0.7 % (0.0-5.0); EOSINOPHILS # (AUTO) 0.07 K/uL (0.00-0.70); HEMATOCRIT 36.5 % (36-48); IMMATURE GRANULOCYTE ABSOLUTE 0.02 K/uL (0-1); LYMPHOCYTES # (AUTO) 2.1 K/uL (1.0-4.8); LYMPHOCYTES % (AUTO) 30.2 % (21.0-51.0); MEAN CORPUSCULAR HEMOGLOBIN 30.3 pg (27.0-33.0); MEAN CORPUSCULAR HGB CONC 31.5 g/dL (32.0-36.0); MEAN CORPUSCULAR VOLUME 96.1 fL (79-99); MONOCYTES # (AUTO) 0.6 K/uL (0.1-1.0); MONOCYTES % (AUTO) 8.6 % (3.0-13.0); NEUTROPHILS # (AUTO) 4.2 K/uL (1.8-7.7); NEUTROPHILS % (AUTO) 59.2 % (40.0-77.0); PLATELET COUNT (AUTO) 173 K/uL (130-400); RED CELL DISTRIBUTION WIDTH 14.1 % (11.0-15.5); WHITE BLOOD COUNT (AUTO) 7.1 K/uL (4.8-10.8)
[2024-01-26 19:07] LABS: CREATININE 1.3 mg/dL (0.5-1.0); INR <= 0.93 (0.85-1.15); POTASSIUM 4.1 mmol/L (3.5-5.1); PROTHROMBIN TIME 10.8 SEC (9.6-11.6)
[2024-01-26 19:12] LABS: ALBUMIN 3.5 g/dL (3.5-5.0); BILIRUBIN,TOTAL 0.4 mg/dL (0.2-1.0); TOTAL PROTEIN, SERUM 7.2 g/dL (6.0-8.3)
[2024-01-26 19:14] LABS: B-TYPE NATRIURETIC PEPTIDE 91 pg/mL (0-100)
== END 2024-01-26 21:56 | disposition home or self-care (01) ==
LOC: EDH 18:06
DX: R07.89 Other chest pain (principal); K21.9 Gastro-esophageal reflux disease without esophagitis; F03.90 Unspecified dementia, unspecified severity, without behavioral disturbance, psychotic disturbance, mood disturbance, and anxiety; K52.9 Noninfective gastroenteritis and colitis, unspecified; I10 Essential (primary) hypertension
CPT/HCPCS: 36415; 71045; 80053; 83880; 84484; 85025; 85610; 93005

== ENCOUNTER 2024-03-02 03:09 | Emergency (ER) | payer MEDICARE ==
[~2024-03-02] VITALS: Ht 160 cm; Wt 56.7 kg
[~2024-03-02 03:09] MED LIST changes: +MEMA5TAB16 PO; -MEMA5TAB42 PO
[2024-03-02] MEDS: PANTOPRAZOLE 40 MG/VIAL IVP ONE (03:25)
[2024-03-02] MEDS: LACTATED RINGERS 1000ML 1,000 ML IV ONE (03:26)
[2024-03-02] MEDS: ONDANSETRON 4MG INJ IVP ONE (03:26)
[2024-03-02 03:41] LABS: BASOPHILS # (AUTO) 0.04 K/uL (0.00-0.20); BASOPHILS % (AUTO) 0.5 % (0.0-5.0); EOSINOPHILS # (AUTO) 0.13 K/uL (0.00-0.70); EOSINOPHILS % (AUTO) 1.6 % (0.0-8.0); HEMATOCRIT 33.7 % (36-48); IMMATURE GRANULOCYTE ABSOLUTE 0.02 K/uL (0-1); LYMPHOCYTES # (AUTO) 2.6 K/uL (1.0-4.8); LYMPHOCYTES % (AUTO) 32.8 % (21.0-51.0); MEAN CORPUSCULAR HEMOGLOBIN 30.6 pg (27.0-33.0); MEAN CORPUSCULAR HGB CONC 32.6 g/dL (32.0-36.0); MEAN CORPUSCULAR VOLUME 93.9 fL (79-99); MONOCYTES % (AUTO) 12.2 % (3.0-13.0); NEUTROPHILS # (AUTO) 4.2 K/uL (1.8-7.7); NEUTROPHILS % (AUTO) 52.7 % (40.0-77.0); PLATELET COUNT (AUTO) 157 K/uL (130-400); RED BLOOD CELL COUNT(AUTO) 3.59 MIL/uL (4.00-5.50); RED CELL DISTRIBUTION WIDTH 14.6 % (11.0-15.5)
[2024-03-02 03:51] LABS: CREATININE 1.1 mg/dL (0.5-1.0); POTASSIUM 4.1 mmol/L (3.5-5.1)
[2024-03-02 03:56] LABS: ALBUMIN 3.3 g/dL (3.5-5.0); BILIRUBIN,TOTAL 0.6 mg/dL (0.2-1.0); TOTAL PROTEIN, SERUM 6.8 g/dL (6.0-8.3)
[2024-03-02 04:21] LABS: APPEARANCE,URINE CLEAR (CLEAR); BILIRUBIN,URINE NEGATIVE (NEGATIVE); COLOR,URINE COLORLESS (YELLOW); GLUCOSE, URINE (UA) NEGATIVE (NEGATIVE); KETONES,URINE NEGATIVE (NEGATIVE); LEUKOCYTE ESTERASE ,URINE 500 Leu/uL (NEGATIVE); NITRATE,URINE NEGATIVE (NEGATIVE); OCCULT BLOOD,URINE SMALL (NEGATIVE); PROTEIN,URINE NEGATIVE (NEGATIVE); UROBILINOGEN,URINE 0.2 mg/dL (0.2-1.0)
[2024-03-02 04:29] LABS: ADD UA MICROSCOPIC YES
[2024-03-02 04:30] LABS: BACTERIA,URINE FEW /HPF (None Seen); SQUAMOUS EPITHELIAL CELL,UR RARE /HPF (0-2)
[2024-03-02] MEDS ORDERED: IOHEXOL-350 75 ML VIAL IV ONE (04:51)
[2024-03-02 05:12] VITALS: BP 151/66; PULSE 71; RESP 16; O2SAT 96
[2024-03-02] MEDS ORDERED: CEPH500B PO (06:27)
== END 2024-03-02 06:35 | disposition home or self-care (01) ==
LOC: EDH 03:09
DX: N39.0 Urinary tract infection, site not specified (principal); K59.00 Constipation, unspecified; F03.90 Unspecified dementia, unspecified severity, without behavioral disturbance, psychotic disturbance, mood disturbance, and anxiety; I10 Essential (primary) hypertension; K21.9 Gastro-esophageal reflux disease without esophagitis; M19.90 Unspecified osteoarthritis, unspecified site; Z79.1 Long term (current) use of non-steroidal anti-inflammatories (NSAID); Z79.899 Other long term (current) drug therapy
CPT/HCPCS: 99285; 74177; 96374; 71045; 96375; 82550; 84484; 80053; 83690; 85025; 87088; 81001; 36415; 74018; 93005; J2405; C9113; Q9967

== ENCOUNTER 2024-03-20 16:13 | Emergency (ER) | payer MEDICARE ==
[~2024-03-20] VITALS: Ht 147.3 cm; Wt 53.5 kg
[~2024-03-20 16:13] MED LIST changes: +CEPH500B PO
[2024-03-20 16:50] LABS: BASOPHILS # (AUTO) 0.08 K/uL (0.00-0.20); BASOPHILS % (AUTO) 0.7 % (0.0-5.0); EOSINOPHILS # (AUTO) 0.08 K/uL (0.00-0.70); EOSINOPHILS % (AUTO) 0.7 % (0.0-8.0); HEMATOCRIT 33.7 % (36-48); IMMATURE GRANULOCYTE ABSOLUTE 0.06 K/uL (0-1); LYMPHOCYTES % (AUTO) 17.6 % (21.0-51.0); MEAN CORPUSCULAR HEMOGLOBIN 31.1 pg (27.0-33.0); MEAN CORPUSCULAR HGB CONC 32.6 g/dL (32.0-36.0); MEAN CORPUSCULAR VOLUME 95.2 fL (79-99); MONOCYTES # (AUTO) 0.8 K/uL (0.1-1.0); MONOCYTES % (AUTO) 7.3 % (3.0-13.0); NEUTROPHILS # (AUTO) 8.5 K/uL (1.8-7.7); NEUTROPHILS % (AUTO) 73.2 % (40.0-77.0); PLATELET COUNT (AUTO) 187 K/uL (130-400); RED BLOOD CELL COUNT(AUTO) 3.54 MIL/uL (4.00-5.50); RED CELL DISTRIBUTION WIDTH 15.6 % (11.0-15.5); WHITE BLOOD COUNT (AUTO) 11.6 K/uL (4.8-10.8)
[2024-03-20 17:01] LABS: CREATININE 1.2 mg/dL (0.5-1.0); POTASSIUM 4.4 mmol/L (3.5-5.1)
[2024-03-20 17:10] LABS: ALBUMIN 3.5 g/dL (3.5-5.0); BILIRUBIN,TOTAL 0.5 mg/dL (0.2-1.0); TOTAL PROTEIN, SERUM 6.8 g/dL (6.0-8.3)
[2024-03-20] MEDS: DiphenhydrAMINE HCL 50 MG/ML VIAL IV ONE (18:22)
[2024-03-20] MEDS: METOCLOPRAMIDE 10 MG/2 ML VIAL IVP ONE (18:22)
[2024-03-20] MEDS ORDERED: CYCL10TA16 PO (18:40)
[2024-03-20] MEDS ORDERED: IBUP-2076 PO (18:40)
[2024-03-20 18:52] VITALS: BP 132/78; PULSE 82; RESP 18; O2SAT 98
== END 2024-03-20 18:54 | disposition home or self-care (01) ==
LOC: EDH 16:13
DX: R51.9 Headache, unspecified (principal); M54.2 Cervicalgia; I10 Essential (primary) hypertension; K21.9 Gastro-esophageal reflux disease without esophagitis; F03.90 Unspecified dementia, unspecified severity, without behavioral disturbance, psychotic disturbance, mood disturbance, and anxiety; M19.90 Unspecified osteoarthritis, unspecified site; Z79.899 Other long term (current) drug therapy; Z98.890 Other specified postprocedural states
CPT/HCPCS: 99285; 96374; 70450; 96375; 80053; 85025; 36415; J1200; J2765

== ENCOUNTER 2024-04-15 17:31 | Emergency (ER) | payer MEDICARE ==
[~2024-04-15] VITALS: Ht 147.3 cm; Wt 49.9 kg
[~2024-04-15 17:31] MED LIST changes: +CYCL10TA16 PO; +IBUP-2076 PO; +ONDA-243 PO; -ONDA4TAB10 PO
[2024-04-15 17:51] VITALS: BP 120/53; PULSE 85; RESP 17; O2SAT 96
[2024-04-15] MEDS ORDERED: DICL20GE TP (18:18)
== END 2024-04-15 19:03 | disposition home or self-care (01) ==
LOC: EDH 17:31
DX: S80.01XA Contusion of right knee, initial encounter (principal); F03.90 Unspecified dementia, unspecified severity, without behavioral disturbance, psychotic disturbance, mood disturbance, and anxiety; Z79.899 Other long term (current) drug therapy; Z98.890 Other specified postprocedural states; W18.39XA Other fall on same level, initial encounter; Y93.89 Activity, other specified; Y92.89 Other specified places as the place of occurrence of the external cause; Y99.8 Other external cause status
CPT/HCPCS: 29505; 73562

== ENCOUNTER 2025-03-29 08:57 | Observation (INO) | payer MEDICARE ==
[~2025-03-29] VITALS: Ht 165.1 cm; Wt 68.0 kg
[~2025-03-29 08:57] MED LIST changes: +DICL20GE TP
[2025-03-29 09:36] LABS: BASOPHILS # (AUTO) 0.05 K/uL (0.00-0.20); BASOPHILS % (AUTO) 0.8 % (0.0-5.0); EOSINOPHILS # (AUTO) 0.07 K/uL (0.00-0.70); EOSINOPHILS % (AUTO) 1.1 % (0.0-8.0); HEMATOCRIT 35.3 % (36-48); IMMATURE GRANULOCYTE ABSOLUTE 0.02 K/uL (0-1); LYMPHOCYTES # (AUTO) 2.1 K/uL (1.0-4.8); LYMPHOCYTES % (AUTO) 31.6 % (21.0-51.0); MEAN CORPUSCULAR HEMOGLOBIN 31.4 pg (27.0-33.0); MEAN CORPUSCULAR HGB CONC 32.3 g/dL (32.0-36.0); MEAN CORPUSCULAR VOLUME 97.2 fL (79-99); MONOCYTES # (AUTO) 0.6 K/uL (0.1-1.0); NEUTROPHILS # (AUTO) 3.7 K/uL (1.8-7.7); NEUTROPHILS % (AUTO) 57.2 % (40.0-77.0); PLATELET COUNT (AUTO) 176 K/uL (130-400); RED BLOOD CELL COUNT(AUTO) 3.63 MIL/uL (4.00-5.50); RED CELL DISTRIBUTION WIDTH 15.4 % (11.0-15.5); WHITE BLOOD COUNT (AUTO) 6.5 K/uL (4.8-10.8)
--- NOTE | 2025-03-29 09:42 | ERN ---
General Chief Complaint: Abdominal Pain Stated Complaint: LUQ PAIN Time Seen by MD: 09:01 Source: patient History of Present Illness Initial Comments Patient is a an 85-year-old female coming in complaining of left upper quadrant pain. Patient states that the pain has been ongoing for three days. No fever or chills. Patient also states that she had a similar pain in the past and was diagnosed with small-bowel obstruction. Allergies: Coded Allergies: No Known Drug Allergies (Verified Allergy, Unknown, 06/24/16) Home Meds Active Scripts Diclofenac Sodium (Voltaren Arthritis Pain) 1 % Gel..gram., 20 GM TP BID for 60 Days, #1 TUBE Prov:KIM GO MD 04/15/24 Ibuprofen (Ibuprofen) 400 Mg Tablet, 400 MG PO QIDP PRN for PAIN for 7 Days, #30 TAB Prov:IJNA TOMLINSON DO 03/20/24 Cyclobenzaprine HCl (Flexeril) 10 Mg Tab, 5 MG PO TID PRN for muscle spasm for 7 Days, #21 TAB 0 Refills Prov:JINA TOMLINSON DO 03/20/24 Cephalexin Monohydrate (Keflex) 500 Mg Cap, 500 MG PO QID for 7 Days, #28 CAP Prov:KIM GO MD 03/02/24 Levofloxacin (Levofloxacin) 500 Mg Tablet, 500 MG PO DAILY, #7 TAB 0 Refills Prov:COLLIN WHITLEY AGPCNP 12/25/22 Ondansetron (Ondansetron Odt) 4 Mg Tab.rapdis, 4 MG PO TID PRN for NAUSEA, #15 TAB 0 Refills Prov:DONTRELL VALERIO MD 12/18/22 Nirmatrelvir/Ritonavir (Paxlovid Co-Pack (Eua)) 1 Each Tablet, 1 EACH PO BID for 5 Days, #10 COMB.PKG 0 Refills Prov:DONTRELL VALERIO MD 12/18/22 Pantoprazole Sodium (Protonix) 40 Mg Ectab, 40 MG PO DAILY for 30 Days, #30 TAB.EC Prov:KIM GO MD 03/23/22 Reported Medications Memantine HCl (Memantine HCl) 5 Mg Tablet, 5 MG PO BID, TAB 12/23/22 Meloxicam (Mobic) 15 Mg Tablet, 7.5 MG PO DAILY, TAB 7/18/21 Losartan Potassium (Losartan Potassium) 25 Mg Tablet, 25 MG PO DAILY, TAB 05/16/21 Past Medical History Past Medical History: Constipation, Dementia Medical History Other: ALZTHIMERS, SBO, CHRONIC BACK PAINS Past Surgical History: Other Surgical History Other: BACK, LEFT KNEE, SHOULDER SX Family History Family History: Negative Social History Social History: Negative, Lives with family Female( History) History: Not Applicable ROS Dictation CONSTITUTIONAL: No chills, no fever, no weakness, no diaphoresis, no malaise. HEAD/FACE: No signs of trauma. EENT: No eye pain, no blurred vision, no tearing, no double vision, no ear pain, no ear discharge, no nose pain, no nasal congestion, no throat pain, no throat swelling, no mouth pain. RESPIRATORY: No cough, no orthopnea, no SOB, no stridor, no wheezing. CARDIOVASCULAR: No chest pain, no edema, no palpitations, no syncope. GASTROINTESTINAL/ABDOMINAL: No abdominal pain, no constipation, no diarrhea, no nausea, no vomiting. GENITOURINARY: No abnormal discharge, no dysuria, no frequent urination, no hematuria. No complaints of pain in the genitals. MUSCULOSKELETAL: No back pain, no gout, no joint pain, no joint swelling, no muscle pain, no muscle stiffness, no neck pain. INTEGUMENTARY: No change in color, no change in hair/nails, no dryness, no lesion, no lumps, no rash. NEUROLOGICAL/PSYCH: No anxiety, not depressed, no emotional problem, no headache, no numbness, no pre-existing deficit, no history of seizures, no tremors, no weakness. HEMATOLOGIC/LYMPHATIC: Not anemic, no history of blood clots, no apparent bleeding, no bruising, glands not swollen. All Systems Negative, Except as Noted. Physical Exam Physical Exam Dictation VITAL SIGNS: Reviewed. GENERAL APPEARANCE: Alert, oriented x3, no acute distress, obese. HEAD AND FACE: Non-traumatic. EYES: PERRL, pink conjunctivas, eyelid no trauma, anterior chamber clear. EARS: Pinnas intact and no signs of trauma or erythema. Ear canals clear and no discharge. TMs no erythema. NOSE: No discharge, no bleeding. OROPHARYNX: Mouth normal, teeth no caries, tongue pink. Pharynx clear, no erythema. Tonsils no exudates, no abscesses noted. Mucous membrane moist. NECK: Supple, non-tender, no thyromegaly, no masses, no JVD, no bruits. BREAST: Deferred. CHEST: No tenderness, no crepitus, no paradoxical movement, no retractions. LUNGS: Clear, well-ventilated, symmetric, no rales, no wheezing, no rhonchi, no stridor, good breath sounds bilaterally. HEART: Regular rate, regular rhythm, no murmur, no gallops. VASCULAR: No peripheral edema. ABDOMEN: Soft, positive bowel sounds, nondistended, no guarding, nontender, no rebound, no masses no hepatomegaly, no splenomegaly, no Francois's sign, no h ernias. RECTAL: Deferred. GENITAL: Deferred. NEUROLOGICAL: Normal speech, gross motor function intact, gross sensory functi on intact. MUSCULOSKELETAL: Neck nontender, full range of motion, back nontender, full range of motion. EXTREMITIES: Nontender, full range of motion. SKIN: Color pink, dry, no turgor, no rash, no lacerations, no abrasions, no contusions. LYMPHATICS: Deferred. Results Laboratory and Microbiology Lab and Micro Result Laboratory Tests Test 03/29/25 09:23 03/29/25 09:41 White Blood Count 6.5 K/uL (4.8-10.8) Red Blood Count 3.63 MIL/uL (4.00-5.50) L Hemoglobin 11.4 g/dL (12.0-16.0) L Hematocrit 35.3 % (36-48) L Mean Corpuscular Volume 97.2 fL (79-99) Mean Corpuscular Hemoglobin 31.4 pg (27.0-33.0) Mean Corpuscular Hemoglobin Concent 32.3 g/dL (32.0-36.0) Red Cell Distribution Width 15.4 % (11.0-15.5) Platelet Count 176 K/uL (130-400) Mean Platelet Volume 10.6 fL (7.5-10.5) H Immature Granulocyte % (Auto) 0.3 % (0-1) Neutrophils (%) (Auto) 57.2 % (40.0-77.0) Lymphocytes (%) (Auto) 31.6 % (21.0-51.0) Monocytes (%) (Auto) 9.0 % (3.0-13.0) Eosinophils (%) (Auto) 1.1 % (0.0-8.0) Basophils (%) (Auto) 0.8 % (0.0-5.0) Neutrophils # (Auto) 3.7 K/uL (1.8-7.7) Lymphocytes # (Auto) 2.1 K/uL (1.0-4.8) Monocytes # (Auto) 0.6 K/uL (0.1-1.0) Eosinophils # (Auto) 0.07 K/uL (0.00-0.70) Basophils # (Auto) 0.05 K/uL (0.00-0.20) Absolute Immature Granulocyte (auto 0.02 K/uL (0-1) Nucleated Red Blood Cells 0.0 % (0.0-0.19) Sodium Level 144 mmol/L (136-145) Potassium Level 4.2 mmol/L (3.5-5.1) Chloride Level 109 mmol/L (101-111) Carbon Dioxide Level 32 mmol/L (21-32) Blood Urea Nitrogen 15 mg/dL (7-18) Creatinine 0.9 mg/dL (0.5-1.0) Glomerular Filtration Rate Calc 63 mL/min (>90) Random Glucose 91 mg/dL (70-105) Total Calcium 9.4 mg/dL (8.5-10.1) Total Bilirubin 0.6 mg/dL (0.2-1.0) Aspartate Amino Transf (AST/SGOT) 18 U/L (10-37) Alanine Aminotransferase (ALT/SGPT) 20 U/L (12-78) Alkaline Phosphatase 62 U/L (50-136) Troponin I High Sensitivity 18 ng/L (4-50) Total Protein 6.9 g/dL (6.0-8.3) Albumin 3.6 g/dL (3.5-5.0) Urine Color COLORLESS (YELLOW) Urine Appearance CLEAR (CLEAR) Urine pH 7.0 (5.0-8.0) Urine Specific [place] 1.011 (1.001-1.031) Urine Protein NEGATIVE mg/dL (NEGATIVE) Urine Glucose (UA) NEGATIVE mg/dL (NEGATIVE) Urine Ketones NEGATIVE mg/dL (NEGATIVE) Urine Occult Blood +- (TRACE) (NEGATIVE) H Urine Nitrate NEGATIVE (NEGATIVE) Urine Bilirubin NEGATIVE mg/dL (NEGATIVE) Urine Urobilinogen 0.2 mg/dL (0.2-1.0) Urine Leukocyte Esterase NEGATIVE Jesus/uL Urine RBC 2-5 /HPF (0-1) H Urine WBC 0-1 /HPF (0-1) Urine Squamous Epithelial Cells RARE /HPF (0-2) Urine Bacteria None /HPF (None Seen) Labs Reviewed?: Yes EKG/XRAY/US/CT/MRI EKG Comment 03/29/2025 time 10:03 a.m. Ventricular rate [address] wave elevation or depression CT Scan Comment [facility] [address] [place] [id number] IMAGING REPORT Signed PATIENT: BENEDICT TORRES V MR#: [id number] : 1940 SEX: F AGE: 85 LOCATION: [facility] ORDER 09 STATUS: REG ER REPORT#: [id number] SERVICE 0901 REASON: ABD PAIN ORDERING PHYSICIAN: KIM GO MD PROCEDURE: ABD PEL WO - CT ABDOMEN/PELVIS W/O CONTRAST CT ABDOMEN/PELVIS W/O CONTRAST HISTORY: Abdomen pain COMPARISON: None TECHNIQUE: Multiple sequential axial images of the abdomen and pelvis were obtained from the dome of the diaphragm through symphysis pubis. Patient was not given contrast through intravenous route. Oral contrast was not given. FINDINGS: No pleural effusion is seen bilaterally. There is no evidence of parenchymal disease or pulmonary nodule of the visualized lower lungs. Degenerative changes of the thoracolumbar spine are present. The heart is not enlarged. Liver measures 11 cm. There is left renal atrophy. Postop changes are seen of the lumbar spine. There is diverticulosis. The liver, spleen, adrenal glands and pancreas are unremarkable. There is no evidence of hydronephrosis bilaterally. No evidence of renal stone is seen. Fecal material is seen in the colon. There are normal size retroperitoneal and mesenteric lymph nodes. No ascites is seen. No CT evidence of acute appendicitis is seen. Atherosclerotic changes are present. Pelvic sidewalls are symmetric bilaterally. Bladder is poorly distended. IMPRESSION: 1. Diverticulosis. No ascites. Fecal material in the colon. CT was performed with one or more following dose reduction techniques: automated exposure control, adjustment of the mA and kv according to patient's size, or use of a iterative reconstruction technique. DICTATED BY: EARNEST COLEMAN MD DATE: 03/29/25 1010 ELECTRONICALLY SIGNED BY: EARNEST COLEMAN MD DATE: 03/29/25 1013 MDM MDM: Differential diagnosis: Sirs, abdominal pain, Rationale: Tests considered and ordered secondary to shared decision making include: labs, ECG and radiology Previous outside records reviewed: Old ER visits. Risk of complication and/or morbidity or mortality of patient management: None Medications-Per medication reconciliation Need for hospitalization: Patient does meet criteria for hospitalization. Need for emergency major/minor surgery: No There are no social concerns with this patient. Prescription drug management Prescriptions will include symptomatic care Patient's prior external medical records from other ER visits were reviewed by me as indicated. Prior testing and results from previous visits were reviewed. Prior tests were taken into account with medical decision making and resource utilization, independent historian/historians were used to obtain complete medical history. I independently interpreted the test that were performed, results were reviewed by me and considered findings on radiology if ordered. Medical management and examination interpretation discussions were had by me with other qualified healthcare professionals as indicated for the patient's care. Patient is a 85-year-old female coming in complaining of abdominal pain. Family members states that patient has been having fevers and chills for a couple of days. Based on the findings laboratory workup within normal limits but symptoms of fever and chills in to be ruled out. Patient will be admitted under the care of hospitalist group for ongoing evaluation and management. ED Course Orders Procedure Category Date Status Time Cbc With Differential LAB 03/29/25 Complete 09:01 Comprehensive LAB 03/29/25 Complete Metabolic Panel 09:01 Troponin I High LAB 03/29/25 Complete Sensitivity 09:01 Urinalysis Profile LAB 03/29/25 Complete 09:01 Ct Abdomen/Pelvis W/O CT 03/29/25 Resulted Contrast 09:01 12 Lead Ekg Tracing- EKG 03/29/25 Complete Technical 09:39 Blood Cult JOHN 03/29/25 Logged 10:55 Ceftriaxone 1g Vial PHA 03/29/25 Complete (Rocephine 1g Inj) 11:00 Current Medications Medications (Trade) Dose Ordered Sig/Travon Route PRN Reason Start Time Stop Time Status Last Admin Dose Admin Ceftriaxone Sodium (ROCEphine 1G INJ) 1 gm ONCE ONCE IVPB 03/29/25 11:00 03/29/25 11:12 DC Vital Signs Date Time Temp Pulse Resp B/P (MAP) Pulse Ox O2 Delivery O2 Flow Rate FiO2 03/29/25 10:38 78 17 135/60 98 Room Air* 0 21 03/29/25 09:06 98.2 67 16 153/64 100 Room Air 0 DX & DISP Disposition: Inpatient Decision to Admit Time: 11:27 Departure Impression: Primary Impression: Abdominal pain Additional Impression: SIRS (systemic inflammatory response syndrome) Condition: Stable Referrals: CARLEEN BARRETT MD (PCP) KIM GO MD March 29, 2025 09:42
[2025-03-29 09:53] LABS: APPEARANCE,URINE CLEAR (CLEAR); BILIRUBIN,URINE NEGATIVE (NEGATIVE); COLOR,URINE COLORLESS (YELLOW); GLUCOSE, URINE (UA) NEGATIVE (NEGATIVE); KETONES,URINE NEGATIVE (NEGATIVE); LEUKOCYTE ESTERASE ,URINE NEGATIVE Leu/uL (NEGATIVE); NITRATE,URINE NEGATIVE (NEGATIVE); PROTEIN,URINE NEGATIVE (NEGATIVE); UROBILINOGEN,URINE 0.2 mg/dL (0.2-1.0)
[2025-03-29 09:54] LABS: ADD UA MICROSCOPIC YES
[2025-03-29 09:55] LABS: ALBUMIN 3.6 g/dL (3.5-5.0); BILIRUBIN,TOTAL 0.6 mg/dL (0.2-1.0); CREATININE 0.9 mg/dL (0.5-1.0); POTASSIUM 4.2 mmol/L (3.5-5.1); TOTAL PROTEIN, SERUM 6.9 g/dL (6.0-8.3)
--- NOTE | 2025-03-29 10:06 | EKG ---
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
[2025-03-29 10:09] LABS: MUCUS,URINE RARE LPF (None Seen); SQUAMOUS EPITHELIAL CELL,UR RARE /HPF (0-2); WBC,URINE 0-1 /HPF (0-1)
--- NOTE | 2025-03-29 10:13 | HMCIMG ---
CT ABDOMEN/PELVIS W/O CONTRAST HISTORY: Abdomen pain COMPARISON: None TECHNIQUE: Multiple sequential axial images of the abdomen and pelvis were obtained from the dome of the diaphragm through symphysis pubis. Patient was not given contrast through intravenous route. Oral contrast was not given. FINDINGS: No pleural effusion is seen bilaterally. There is no evidence of parenchymal disease or pulmonary nodule of the visualized lower lungs. Degenerative changes of the thoracolumbar spine are present. The heart is not enlarged. Liver measures 11 cm. There is left renal atrophy. Postop changes are seen of the lumbar spine. There is diverticulosis. The liver, spleen, adrenal glands and pancreas are unremarkable. There is no evidence of hydronephrosis bilaterally. No evidence of renal stone is seen. Fecal material is seen in the colon. There are normal size retroperitoneal and mesenteric lymph nodes. No ascites is seen. No CT evidence of acute appendicitis is seen. Atherosclerotic changes are present. Pelvic sidewalls are symmetric bilaterally. Bladder is poorly distended. IMPRESSION: 1. Diverticulosis. No ascites. Fecal material in the colon. CT was performed with one or more following dose reduction techniques: automated exposure control, adjustment of the mA and kv according to patient's size, or use of a iterative reconstruction technique.
[2025-03-29] MEDS: cefTRIAXone 1G VIAL IVPB ONE (11:27)
--- NOTE | 2025-03-29 11:36 | HP ---
[facility] HISTORY AND PHYSICAL Date of Service: March 29, 2025 Time of Service: 11:36 HISTORY OF PRESENT ILLNESS: [85-year-old female with past medical history of early-onset Alzheimer's dementia, cataract, osteoarthritis with history of total knee replacement, ro tator cuff surgery, shoulder surgery and functional quadriplegia. According to the patient's daughter who is at bedside, patient woke up with severe left lower quadrant pain. Patient also mentioned that she woke up with headaches. Associated symptoms is subjective fever, chills at home. In patient's daughter also reported that the EMS mentioned that she had a fever of 100.4 F. In the ED, her initial vital signs showed temperature of 98.2 F, pulse 67, respiratory rate 16, blood pressure 153/64, pulse oximetry % on room air. Laboratory results reviewed, H&H 11.4/35.3, her chemistry were unremarkable. CT abdomen and pelvis did show diverticulosis. No ascites. Fecal material in the colon. Was referred to the hospitalist for further evaluation management]. REVIEW OF SYSTEMS CONSTITUTIONAL: Denies fevers, chills, or night sweats. No unintentional weight loss reported. NEUROLOGICAL: Denies headache, amaurosis fugax, motor weakness, sensory deficit, vertigo/spinning sensation, gait abnormalities, or tremors. ENT: No hearing loss, otalgia, otorrhea, rhinitis, rhinorrhea, hoarseness, or sore throat. CARDIOVASCULAR: Denies any exertional angina, dyspnea on exertion, orthopnea, paroxysmal nocturnal dyspnea, palpitations, life-threatening arrhythmias, claudication. PULMONARY: Denies any shortness of breath, cough, phlegm/sputum, hemoptysis, pleuritic chest pain. SLEEP: Denies morning headaches, daytime somnolence or napping. Denies difficulty falling asleep, staying asleep, waking from sleep. Denies knowledge of snoring. GASTROINTESTINAL: Denies any type of dysphagia to either liquids or solids. Denies nausea, vomiting, pyrosis, early satiety, abdominal pain, diarrhea, constipation, or changes in stool consistency or caliber. Denies coffee-ground emesis, hematemesis, hematochezia, or melanotic stools. GENITOURINARY: Denies frequency, urgency, nocturia, hematuria or incontinence (Storage/Irritative symptoms.) Low urinary stream, straining to void, urinary intermittency or hesitancy, splitting of the voiding stream, terminal dribbling. ENDOCRINOLOGIC: Denies polyuria, polydipsia, polyphagia or heat/cold intolerances. HEMATOLOGIC: Denies thrombophilia/previous clots, or coagulopathy/bleeding disorders. ONCOLOGIC: Denies personal history of malignancy. DERMATOLOGIC: Denies rashes or pruritus. PSYCHIATRIC: Denies any suicidal or homicidal ideation. Denies hallucinations. 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 NEUROLOGICAL: Cranial nerves II-XII grossly intact. Motor is 5/5 in bilateral upper and lower extremities proximal to distal. No sensory deficits. HEENT: Face is symmetric. Pupils are equal and reactive. Extraocular movements are intact. NECK: Supple. No JVD. No thyromegaly. No submental, submandibular, pre- /postauricular, occipital or supraclavicular lymphadenopathy. CHEST: Normal chest expansion. No Telemetry. LUNGS: Absence of any rales, rhonchi or any wheezing. CARDIOVASCULAR: Regular. S1 and S2 normal. No appreciable rubs, murmurs or gallops. ABDOMEN: Soft, nontender, and nondistended. There is no rebound, voluntary guarding, or rigidity. : Deferred. No Perdue. EXTREMITIES: Non-edematous and not cyanotic. No clubbing. Good capillary refill. SKIN: No skin breakdown. Vital Sign (Last 24 Hours) 03/29/25 03/29/25 09:06 10:38 Temp 98.2 Pulse 78 Resp 17 B/P (MAP) 135/60 Pulse Ox 98 O2 Delivery Room Air* O2 Flow Rate 0 FiO2 21 LABS: Laboratory: Test 03/29/25 09:41 03/29/25 09:23 Range/Units Urine Color COLORLESS YELLOW Urine Appearance CLEAR CLEAR Urine pH 7.0 5.0-8.0 Urine Specific [place] 1.011 1.001-1.031 Urine Protein NEGATIVE NEGATIVE mg/dL Urine Glucose (UA) NEGATIVE NEGATIVE mg/dL Urine Ketones NEGATIVE NEGATIVE mg/dL Urine Occult Blood +- (TRACE) H NEGATIVE Urine Nitrate NEGATIVE NEGATIVE Urine Bilirubin NEGATIVE NEGATIVE mg/dL Urine Urobilinogen 0.2 0.2-1.0 mg/dL Urine Leukocyte Esterase NEGATIVE NEGATIVE Jesus/uL Urine RBC 2-5 H 0-1 /HPF Urine WBC 0-1 0-1 /HPF Urine Squamous Epithelial Cells RARE 0-2 /HPF Urine Bacteria None None Seen /HPF White Blood Count 6.5 4.8-10.8 K/uL Red Blood Count 3.63 L 4.00-5.50 MIL/uL Hemoglobin 11.4 L 12.0-16.0 g/dL Hematocrit 35.3 L 36-48 % Mean Corpuscular Volume 97.2 79-99 fL Mean Corpuscular Hemoglobin 31.4 27.0-33.0 pg Mean Corpuscular Hemoglobin Concent 32.3 32.0-36.0 g/dL Red Cell Distribution Width 15.4 11.0-15.5 % Platelet Count 176 130-400 K/uL Mean Platelet Volume 10.6 H 7.5-10.5 fL Immature Granulocyte % (Auto) 0.3 0-1 % Neutrophils (%) (Auto) 57.2 40.0-77.0 % Lymphocytes (%) (Auto) 31.6 21.0-51.0 % Monocytes (%) (Auto) 9.0 3.0-13.0 % Eosinophils (%) (Auto) 1.1 0.0-8.0 % Basophils (%) (Auto) 0.8 0.0-5.0 % Neutrophils # (Auto) 3.7 1.8-7.7 K/uL Lymphocytes # (Auto) 2.1 1.0-4.8 K/uL Monocytes # (Auto) 0.6 0.1-1.0 K/uL Eosinophils # (Auto) 0.07 0.00-0.70 K/uL Basophils # (Auto) 0.05 0.00-0.20 K/uL Absolute Immature Granulocyte (auto 0.02 0-1 K/uL Nucleated Red Blood Cells 0.0 0.0-0.19 % Sodium Level 144 136-145 mmol/L Potassium Level 4.2 3.5-5.1 mmol/L Chloride Level 109 101-111 mmol/L Carbon Dioxide Level 32 21-32 mmol/L Blood Urea Nitrogen 15 7-18 mg/dL Creatinine 0.9 0.5-1.0 mg/dL Glomerular Filtration Rate Calc 63 >90 mL/min Random Glucose 91 70-105 mg/dL Total Calcium 9.4 8.5-10.1 mg/dL Total Bilirubin 0.6 0.2-1.0 mg/dL Aspartate Amino Transf (AST/SGOT) 18 10-37 U/L Alanine Aminotransferase (ALT/SGPT) 20 12-78 U/L Alkaline Phosphatase 62 50-136 U/L Troponin I High Sensitivity 18 4-50 ng/L Total Protein 6.9 6.0-8.3 g/dL Albumin 3.6 3.5-5.0 g/dL DIAGNOSTICS / RADIOLOGY: [place] [address] IMAGING REPORT Signed PATIENT: BENEDICT TORRES V MR#: [id number] : 1940 SEX: F AGE: 85 LOCATION: [facility] ORDER 1 STATUS: [facility] REPORT#: [id number] SERVICE 09 REASON: ABD PAIN ORDERING PHYSICIAN: KIM GO MD PROCEDURE: ABD PEL WO - CT ABDOMEN/PELVIS W/O CONTRAST CT ABDOMEN/PELVIS W/O CONTRAST HISTORY: Abdomen pain COMPARISON: None TECHNIQUE: Multiple sequential axial images of the abdomen and pelvis were obtained from the dome of the diaphragm through symphysis pubis. Patient was not given contrast through intravenous route. Oral contrast was not given. FINDINGS: No pleural effusion is seen bilaterally. There is no evidence of parenchymal disease or pulmonary nodule of the visualized lower lungs. Degenerative changes of the thoracolumbar spine are present. The heart is not enlarged. Liver measures 11 cm. There is left renal atrophy. Postop changes are seen of the lumbar spine. There is diverticulosis. The liver, spleen, adrenal glands and pancreas are unremarkable. There is no evidence of hydronephrosis bilaterally. No evidence of renal stone is seen. Fecal material is seen in the colon. There are normal size retroperitoneal and mesenteric lymph nodes. No ascites is seen. No CT evidence of acute appendicitis is seen. Atherosclerotic changes are present. Pelvic sidewalls are symmetric bilaterally. Bladder is poorly distended. IMPRESSION: 1. Diverticulosis. No ascites. Fecal material in the colon. CT was performed with one or more following dose reduction techniques: automated exposure control, adjustment of the mA and kv according to patient's size, or use of a iterative reconstruction technique. DICTATED BY: EARNEST COLEMAN MD DATE: 03/29/25 1010 ELECTRONICALLY SIGNED BY: EARNEST COLEMAN MD DATE: 03/29/25 1013 ] ASSESSMENT: [Intractable left lower quadrant pain, POA Systemic inflammatory response syndrome, POA Constipation, POA Functional quadriplegia, POA History of Alzheimer's dementia] PLAN: [Admit to surgical floor Patient will continue with IV fluids with NS at 50 mL Start patient broad-spectrum antibiotic with Rocephin1 g daily We will start patient on laxative/ cathartic with lactulose at 20 g p.o. b.i.d. We will request physical therapy to eval and treat We will request dietary to eval and treat GI and DVT prophylaxis -famotidine 20 mg IV b.i.d., Lovenox 30 mg subQ daily Prn medication for nausea /vomiting/ pain We will repeat labs tomorrow I discussed plan and findings with the patient's daughterMariluz at bedside all questions addressed. She verbalized understanding and is in agreement with the plan Case discussed with Dr. Gomez, above plan was formula] ADVANCED CARE PLANNING 1. Which of the following were discussed? Hospice Care - Yes / No Therapeutic options - Yes / No Advance Directives - Yes / No Other discussions - 2. Discussed with who? Daughter Mariluz 3. Voluntary nature of this service was explained to the patient? Yes / No 4. Amount of time spent - ____20 mins__ 5. Reviewed by Physician? (if this service was performed by NPP) Yes / No ATTESTATION BY PHYSICIAN I have seen and examined the patient. I reviewed the documentation, medical decision making, and treatment plan as noted by the mid-level provider above. I agree with the findings and plan of care. Radha Gomez MD, [facility] March 29, 2025 11:36
[2025-03-29 11:56] LABS: CREATININE 0.8 mg/dL (0.5-1.0)
[2025-03-29] MEDS ORDERED: LACTULOSE 20 GM/30 ML UDCUP PO PRN (12:00)
[2025-03-29] MEDS ORDERED: MAGNESIUM 2GM PREMIX 50ML 50 ML IV PRN (12:00)
[2025-03-29] MEDS ORDERED: ondanSETRON 4MG INJ IVP PRN (12:00)
[2025-03-29] MEDS ORDERED: DICYCLOMINE HCL 20 MG TAB PO PRN (12:00)
[2025-03-29] MEDS ORDERED: acetaMINOPHEN 325 MG TAB PO PRN (12:00)
--- NOTE | 2025-03-29 13:08 | NUR ---
GAVE REPORT TO NAJMA STACY NO CONCERNS VOICED
[2025-03-29] MEDS ORDERED: CYCL30DR OP (13:14)
[2025-03-29] MEDS ORDERED: QUET25TA36 PO (13:14)
[2025-03-29] MEDS ORDERED: FURO20TA4 PO (13:14)
[2025-03-29] MEDS ORDERED: ACET-66 PO (13:14)
[2025-03-29] MEDS ORDERED: ERGO2000 PO (13:14)
--- NOTE | 2025-03-29 13:53 | HMCIMG ---
CHEST 1VW HISTORY: Fever COMPARISON: 03/02/2000 FINDINGS: A frontal projection of the chest was obtained. Mild right lower lung pulmonary infiltrates are seen. The heart is borderline enlarged. Left shoulder prosthesis is seen. Aortic calcifications are seen. IMPRESSION: 1. Mild right lower lung infiltrates.
[2025-03-29 14:23] VITALS: O2SAT 100
[2025-03-29 16:00] VITALS: BP 132/69; PULSE 63; RESP 18; TEMP 98
[2025-03-29] MEDS: 0.9%NACL 1000ML 1,000 ML IV SCH (17:12)
[2025-03-29] MEDS: acetaMINOPHEN 325 MG TAB PO PRN (17:18)
[2025-03-29 19:00] VITALS: BP 133/73; PULSE 69; RESP 18; TEMP 98.1
[2025-03-29 20:00] VITALS: O2SAT 96
--- NOTE | 2025-03-29 20:32 | HMCIMG ---
US ABDOMINAL COMPLETE HISTORY: abd pain COMPARISON: None FINDINGS: The liver is unremarkable. The gallbladder is surgically absent. The portal vein is patent and the common duct measures 6 mm. Right kidney is atrophic and measures 6.4 cm in length but there is no hydronephrosis or nephrolithiasis. Left kidney is not visualized and was previously reported to be atrophic. Spleen is unremarkable. The inferior vena cava is patent and there is mild atherosclerotic vascular disease of the aorta. IMPRESSION: Nonvisualization left kidney. Right kidney is atrophic and measures 6.4 cm. Change prior cholecystectomy. Atherosclerotic vascular disease of the aorta.
[2025-03-30 00:21] VITALS: BP 121/73; PULSE 68; RESP 18; TEMP 98.2
[2025-03-30 04:00] VITALS: BP 120/67; PULSE 66; RESP 18; TEMP 98
[2025-03-30 08:00] VITALS: O2SAT 96
[2025-03-30 08:06] VITALS: BP 149/73; PULSE 62; RESP 17; TEMP 97.4
[2025-03-30] MEDS: FAMOTIDINE 20MG VIAL IV SCH (08:44)
--- NOTE | 2025-03-30 09:15 | PN ---
[facility] PROGRESS NOTE Date of Service: Mar 30, 2025 Time of Service: 09:15 SUBJECTIVE: This is a case of 85-year-old female with past medical history of early-onset Alzheimer's dementia, cataract, osteoarthritis with history of total knee replacement, rotator cuff surgery, shoulder surgery and functional quadriplegia who was brought to the ER by the daughter after the patient apparently woke up from left lower quadrant pain associated with fever, chills at home. Patient's daughter also reported that the EMS mentioned that she had a fever of 100.4 F. Initial vital signs showed temperature of 98.2 F, pulse 67, respiratory rate 16, blood pressure 153/64, pulse oximetry % on room air. Labs H&H 11.4/35.3, her chemistry were unremarkable. CT abdomen and pelvis did show diverticulosis, No ascites and Fecal material in the colon. Admitted for further evaluation and management. 03/30/2025 Patient is seen and examined at the bedside. She mentions that she has feels well apart from mild left-sided abdominal pain. She denies fever, chills, shortness of breath, nausea, vomiting, chest pain, palpitations, diarrhea. She had a bowel movement yesterday. Vitals temperature 97.3, pulse rate 62, blood pressure 149/73, respiratory rate 17, SpO2 96% on room air. Labs hemoglobin 11, procalcitonin less than 0.05, lactic acid 1.7, BMP unremarkable, troponin 18. U/S abdomen showed Nonvisualization left kidney, atrophic Right kidney which measures 6.4cm, Changes consistent with prior cholecystectomy,Atherosclerotic vascular disease of the aorta. Chest x-ray revealed mild right lower lung infiltrates. Urinalysis showed trace occult blood. Pending blood culture results. REVIEW OF SYSTEMS CONSTITUTIONAL: Denies fevers, chills, or night sweats. No unintentional weight loss reported. NEUROLOGICAL: Denies headache, amaurosis fugax, motor weakness, sensory deficit, vertigo/spinning sensation, gait abnormalities, or tremors. ENT: No hearing loss, otalgia, otorrhea, rhinitis, rhinorrhea, hoarseness, or sore throat. CARDIOVASCULAR: Denies any exertional angina, dyspnea on exertion, orthopnea, paroxysmal nocturnal dyspnea, palpitations, life-threatening arrhythmias, claudication. PULMONARY: Denies any shortness of breath, cough, phlegm/sputum, hemoptysis, pleuritic chest pain. SLEEP: Denies morning headaches, daytime somnolence or napping. Denies difficu lty falling asleep, staying asleep, waking from sleep. Denies knowledge of snoring. GASTROINTESTINAL: Denies any type of dysphagia to either liquids or solids. Denies nausea, vomiting, pyrosis, early satiety, abdominal pain, diarrhea, constipation, or changes in stool consistency or caliber. Denies coffee-ground emesis, hematemesis, hematochezia, or melanotic stools. GENITOURINARY: Denies frequency, urgency, nocturia, hematuria or incontinence (Storage/Irritative symptoms.) Low urinary stream, straining to void, urinary intermittency or hesitancy, splitting of the voiding stream, terminal dribbling. ENDOCRINOLOGIC: Denies polyuria, polydipsia, polyphagia or heat/cold intol erances. HEMATOLOGIC: Denies thrombophilia/previous clots, or coagulopathy/bleeding disorders. ONCOLOGIC: Denies personal history of malignancy. DERMATOLOGIC: Denies rashes or pruritus. PSYCHIATRIC: Denies any suicidal or homicidal ideation. Denies hallucinations. PHYSICAL EXAM GENERAL APPEARANCE: The patient is awake, alert, and oriented, in no acute cardiopulmonary distress. NEUROLOGICAL: Cranial nerves II-XII grossly intact. Motor is 5/5 in bilateral upper and lower extremities proximal to distal. No sensory deficits. HEENT: Face is symmetric. Pupils are equal and reactive. Extraocular movements are intact. NECK: Supple. No JVD. No thyromegaly. No submental, submandibular, pre- /postauricular, occipital or supraclavicular lymphadenopathy. CHEST: Normal chest expansion. No Telemetry. LUNGS: Absence of any rales, rhonchi or any wheezing. CARDIOVASCULAR: Regular. S1 and S2 normal. No appreciable rubs, murmurs or gallops. ABDOMEN: Mild tenderness noted on palpation over epigastric and left lower quadrant region Soft, nontender, and nondistended. There is no rebound, vo luntary guarding, or rigidity. : Deferred. No Perdue. EXTREMITIES: Non-edematous and not cyanotic. No clubbing. Good capillary refill. SKIN: No skin breakdown. Vital Signs (last 8hr) Date Time Temp Pulse Resp B/P (MAP) Pulse Ox O2 Delivery O2 Flow Rate FiO2 03/30/25 08:06 97.3 62 17 149/73 96 Room Air 03/30/25 04:00 98.1 66 18 120/67 94 Room Air LABS: Laboratory: Test 03/30/25 06:17 03/29/25 11:40 03/29/25 09:41 03/29/25 09:23 Range/Units Magnesium Level 1.90 1.80-2.40 mg/dL Sodium Level 144 136-145 mmol/L Potassium Level 4.0 3.5-5.1 mmol/L Chloride Level 109 101-111 mmol/L Carbon Dioxide Level 30 21-32 mmol/L Blood Urea Nitrogen 15 7-18 mg/dL Creatinine 0.8 0.5-1.0 mg/dL Glomerular Filtration Rate Calc 72 >90 mL/min Random Glucose 95 70-105 mg/dL Total Calcium 9.0 8.5-10.1 mg/dL Urine Color COLORLESS YELLOW Urine Appearance CLEAR CLEAR Urine pH 7.0 5.0-8.0 Urine Specific [place] 1.011 1.001-1.031 Urine Protein NEGATIVE NEGATIVE mg/dL Urine Glucose (UA) NEGATIVE NEGATIVE mg/dL Urine Ketones NEGATIVE NEGATIVE mg/dL Urine Occult Blood +- (TRACE) H NEGATIVE Urine Nitrate NEGATIVE NEGATIVE Urine Bilirubin NEGATIVE NEGATIVE mg/dL Urine Urobilinogen 0.2 0.2-1.0 mg/dL Urine Leukocyte Esterase NEGATIVE NEGATIVE Ejsus/uL Urine RBC 2-5 H 0-1 /HPF Urine WBC 0-1 0-1 /HPF Urine Squamous Epithelial Cells RARE 0-2 /HPF Urine Bacteria None None Seen /HPF White Blood Count 6.5 4.8-10.8 K/uL Red Blood Count 3.63 L 4.00-5.50 MIL/uL Hemoglobin 11.4 L 12.0-16.0 g/dL Hematocrit 35.3 L 36-48 % Mean Corpuscular Volume 97.2 79-99 fL Mean Corpuscular Hemoglobin 31.4 27.0-33.0 pg Mean Corpuscular Hemoglobin Concent 32.3 32.0-36.0 g/dL Red Cell Distribution Width 15.4 11.0-15.5 % Platelet Count 176 130-400 K/uL Mean Platelet Volume 10.6 H 7.5-10.5 fL Immature Granulocyte % (Auto) 0.3 0-1 % Neutrophils (%) (Auto) 57.2 40.0-77.0 % Lymphocytes (%) (Auto) 31.6 21.0-51.0 % Monocytes (%) (Auto) 9.0 3.0-13.0 % Eosinophils (%) (Auto) 1.1 0.0-8.0 % Basophils (%) (Auto) 0.8 0.0-5.0 % Neutrophils # (Auto) 3.7 1.8-7.7 K/uL Lymphocytes # (Auto) 2.1 1.0-4.8 K/uL Monocytes # (Auto) 0.6 0.1-1.0 K/uL Eosinophils # (Auto) 0.07 0.00-0.70 K/uL Basophils # (Auto) 0.05 0.00-0.20 K/uL Absolute Immature Granulocyte (auto 0.02 0-1 K/uL Nucleated Red Blood Cells 0.0 0.0-0.19 % Total Bilirubin 0.6 0.2-1.0 mg/dL Aspartate Amino Transf (AST/SGOT) 18 10-37 U/L Alanine Aminotransferase (ALT/SGPT) 20 12-78 U/L Alkaline Phosphatase 62 50-136 U/L Troponin I High Sensitivity 18 4-50 ng/L Total Protein 6.9 6.0-8.3 g/dL Albumin 3.6 3.5-5.0 g/dL Current Medications Medications (Trade) Dose Ordered Sig/Travon Route PRN Reason Start Time Stop Time Status Last Admin Dose Admin Acetaminophen (TYLenol 325MG TAB) 650 mg Q4H PRN PO TEMPERATURE GREATER THAN 101.5 03/29/25 12:00 04/28/25 11:59 Acetaminophen (TYLenol 325MG TAB) 650 mg Q6H PRN PO MILD PAIN (1-3) 03/29/25 12:00 04/28/25 11:59 03/30/25 07:42 650 MG Ceftriaxone Sodium (ROCEphine 1G INJ) 1 gm Q24H IVPB 03/30/25 12:00 03/31/25 12:00 Dicyclomine HCl (Bentyl 20mg Tab) 10 mg QID PRN PO ABDOMINAL PAIN 03/29/25 12:00 04/28/25 11:59 Famotidine (Pepcid 20mg Vial) 20 mg DAILY IV 03/30/25 09:00 04/29/25 08:59 03/30/25 08:44 20 MG Lactulose (Constulose 20gm/ 30ml Udcup) 20 gm BID PRN PO CONSTIPATION 03/29/25 12:00 04/28/25 11:59 Magnesium Sulfate 50 ml @ 0 mls/hr PROTOCOL PRN IV MAGNESIUM PROTOCOL 03/29/25 12:00 04/28/25 11:59 Ondansetron HCl (zoFRAN 4MG INJ) 4 mg Q6H PRN IVP NAUSEA/VOMITING 03/29/25 12:00 04/28/25 11:59 Potassium Chloride 100 ml @ 50 mls/hr AD PRN IV POTASSIUM PROTOCOL 03/29/25 12:00 04/28/25 11:59 Sodium Chloride 1,000 ml @ 50 mls/hr Q20H IV 03/29/25 12:00 04/28/25 11:59 03/30/25 08:44 50 MLS/HR DIAGNOSTICS / RADIOLOGY: SERVICE 1131 REASON: abd pain ORDERING PHYSICIAN: COLLIN WHITLEY PROCEDURE: ABDOMEN - US ABDOMINAL COMPLETE US ABDOMINAL COMPLETE HISTORY: abd pain COMPARISON: None FINDINGS: The liver is unremarkable. The gallbladder is surgically absent. The portal vein is patent and the common duct measures 6 mm. Right kidney is atrophic and measures 6.4 cm in length but there is no hydronephrosis or nephrolithiasis. Left kidney is not visualized and was previously reported to be atrophic. Spleen is unremarkable. The inferior vena cava is patent and there is mild atherosclerotic vascular disease of the aorta. IMPRESSION: Nonvisualization left kidney. Right kidney is atrophic and measures 6.4 cm. Change prior cholecystectomy. Atherosclerotic vascular disease of the aorta. SERVICE 1155 REASON: FEVER AT HOME ORDERING PHYSICIAN: COLLIN WHITLEY PROCEDURE: CXR1VW - CHEST 1VW CHEST 1VW HISTORY: Fever COMPARISON: 03/02/2000 FINDINGS: A frontal projection of the chest was obtained. Mild right lower lung pulmonary infiltrates are seen. The heart is borderline enlarged. Left shoulder prosthesis is seen. Aortic calcifications are seen. IMPRESSION: 1. Mild right lower lung infiltrates. ASSESSMENT: Intractable left lower quadrant pain, POA, resolving Systemic inflammatory response syndrome, POA Diverticulosis as per CT abdomen on 03/29/2025 Chronic Constipation, POA Loss of appetite, POA Chronic Anemia, POA Mild right lower lobe infiltrates as per chest x-ray on 03/29/2025 Functional quadriplegia, POA History of Alzheimer's dementia PLAN: SIRS, POA Continue with IV fluids with NS at 50 mL/hr Continue broad-spectrum antibiotic with Rocephin1 g daily Urinalysis negative for infection Follow up on blood culture results Chronic Constipation, POA Continue lactulose 20 g b.i.d. p.r.n. for constipation Chronic Anemia, POA Hemoglobin currently at 11 Monitor H&H Low iron levels as per lab results in 2020 We will repeat anemia panel Mild right lower lobe infiltrates as per chest x-ray on 03/29/2025 We will Monitor for any signs of infection Saturating well greater than 95% on room air Plan to repeat chest x-ray later No recent previous x-rays available for comparison Alzheimer's dementia Continue home Medication memantine 5 mg We will request physical therapy to eval and treat We will request dietary to eval and treat Continue GI and DVT prophylaxis -famotidine 20 mg IV b.i.d. Continue DVT prophylaxis Lovenox 40 SQ daily Home Medications are reconciled Continue Prn medication for nausea /vomiting/ pain Repeat labs in a.m. ATTESTATION BY PHYSICIAN I have seen and examined the patient. I reviewed the documentation, medical decision making, and treatment plan as noted by the resident above. I agree with the findings and plan of care. Manoj Gomez MD, PRIYANKA MD Mar 30, 2025 09:15
[2025-03-30 09:25] LABS: BASOPHILS # (AUTO) 0.06 K/uL (0.00-0.20); BASOPHILS % (AUTO) 0.9 % (0.0-5.0); EOSINOPHILS # (AUTO) 0.04 K/uL (0.00-0.70); EOSINOPHILS % (AUTO) 0.6 % (0.0-8.0); HEMATOCRIT 33.2 % (36-48); IMMATURE GRANULOCYTE ABSOLUTE 0.02 K/uL (0-1); LYMPHOCYTES # (AUTO) 1.7 K/uL (1.0-4.8); LYMPHOCYTES % (AUTO) 26.8 % (21.0-51.0); MEAN CORPUSCULAR HGB CONC 33.1 g/dL (32.0-36.0); MEAN CORPUSCULAR VOLUME 96.5 fL (79-99); MONOCYTES # (AUTO) 0.6 K/uL (0.1-1.0); MONOCYTES % (AUTO) 8.7 % (3.0-13.0); NEUTROPHILS % (AUTO) 62.7 % (40.0-77.0); PLATELET COUNT (AUTO) 158 K/uL (130-400); RED BLOOD CELL COUNT(AUTO) 3.44 MIL/uL (4.00-5.50); RED CELL DISTRIBUTION WIDTH 15.6 % (11.0-15.5); WHITE BLOOD COUNT (AUTO) 6.3 K/uL (4.8-10.8)
[2025-03-30] MEDS ORDERED: furoSEMIDE 20 MG TABLET PO SCH (09:30)
[2025-03-30 09:36] LABS: CREATININE 0.8 mg/dL (0.5-1.0); POTASSIUM 3.8 mmol/L (3.5-5.1)
[2025-03-30 12:20] VITALS: BP 139/66; PULSE 69; RESP 18; TEMP 97.2
[2025-03-30] MEDS: cefTRIAXone 1G VIAL IVPB SCH (12:47)
[2025-03-30] MEDS: PoTASSium chloRIDE 20MEQ/100ML 100 ML IV PRN (18:47)
[2025-03-30] MEDS: MEMANtine HCL 5 MG TABLET PO SCH (19:45)
[2025-03-30] MEDS: queTIAPine fuMARate 25 MG TAB PO SCH (19:45)
[2025-03-30 20:00] VITALS: BP 146/70; PULSE 70; RESP 20; TEMP 98.5
[2025-03-31] VITALS: BP 124/69; PULSE 70; RESP 24; TEMP 97.8
[2025-03-31 04:00] VITALS: BP 121/69; PULSE 100; RESP 20; TEMP 97.8
[2025-03-31 06:11] LABS: BASOPHILS # (AUTO) 0.05 K/uL (0.00-0.20); BASOPHILS % (AUTO) 0.8 % (0.0-5.0); EOSINOPHILS # (AUTO) 0.09 K/uL (0.00-0.70); EOSINOPHILS % (AUTO) 1.4 % (0.0-8.0); HEMATOCRIT 29.8 % (36-48); IMMATURE GRANULOCYTE ABSOLUTE 0.02 K/uL (0-1); LYMPHOCYTES # (AUTO) 2.1 K/uL (1.0-4.8); LYMPHOCYTES % (AUTO) 31.5 % (21.0-51.0); MEAN CORPUSCULAR HEMOGLOBIN 31.1 pg (27.0-33.0); MEAN CORPUSCULAR HGB CONC 32.2 g/dL (32.0-36.0); MEAN CORPUSCULAR VOLUME 96.4 fL (79-99); MONOCYTES # (AUTO) 0.6 K/uL (0.1-1.0); MONOCYTES % (AUTO) 9.7 % (3.0-13.0); NEUTROPHILS # (AUTO) 3.7 K/uL (1.8-7.7); NEUTROPHILS % (AUTO) 56.3 % (40.0-77.0); PLATELET COUNT (AUTO) 146 K/uL (130-400); RED BLOOD CELL COUNT(AUTO) 3.09 MIL/uL (4.00-5.50); RED CELL DISTRIBUTION WIDTH 15.6 % (11.0-15.5); WHITE BLOOD COUNT (AUTO) 6.5 K/uL (4.8-10.8)
[2025-03-31 06:12] LABS: RETICULOCYTE % (AUTO) 1.57 % (0.42-2.23)
[2025-03-31 06:48] LABS: CREATININE 0.8 mg/dL (0.5-1.0)
[2025-03-31 06:55] LABS: % IRON SATURATION 30.8 % (22-44)
[2025-03-31 08:00] VITALS: BP 150/71; PULSE 62; RESP 17; TEMP 98.1
[2025-03-31] MEDS: ENOXAPARIN SODIUM 40 MG/0.4 ML SYRINGE SQ SCH (08:47)
[2025-03-31] MEDS: LoSARTan 25 MG TABLET PO SCH (08:47)
[2025-03-31 08:50] VITALS: O2SAT 98
--- NOTE | 2025-03-31 09:14 | PN ---
[facility] PROGRESS NOTE Date of Service: Mar 31, 2025 Time of Service: 09:14 SUBJECTIVE: This is a case of 85-year-old female with past medical history of early-onset Alzheimer's dementia, cataract, osteoarthritis with history of total knee replacement, rotator cuff surgery, shoulder surgery and functional quadriplegia who was brought to the ER by the daughter after the patient apparently woke up from left lower quadrant pain associated with fever, chills at home. Patient's daughter also reported that the EMS mentioned that she had a fever of 100.4 F. Initial vital signs showed temperature of 98.2 F, pulse 67, respiratory rate 16, blood pressure 153/64, pulse oximetry % on room air. Labs H&H 11.4/35.3, her chemistry were unremarkable. CT abdomen and pelvis did show diverticulosis, No ascites and Fecal material in the colon. Admitted for further evaluation and management. 03/30/2025 Patient is seen and examined at the bedside. She mentions that she has feels well apart from mild left-sided abdominal pain. She denies fever, chills, shortness of breath, nausea, vomiting, chest pain, palpitations, diarrhea. She had a bowel movement yesterday. Vitals temperature 97.3, pulse rate 62, blood pressure 149/73, respiratory rate 17, SpO2 96% on room air. Labs hemoglobin 11, procalcitonin less than 0.05, lactic acid 1.7, BMP unremarkable, troponin 18. U/S abdomen showed Nonvisualization left kidney, atrophic Right kidney which measures 6.4cm, Changes consistent with prior cholecystectomy,Atherosclerotic vascular disease of the aorta. Chest x-ray revealed mild right lower lung infiltrates. Urinalysis showed trace occult blood. Pending blood culture results. REVIEW OF SYSTEMS CONSTITUTIONAL: Denies fevers, chills, or night sweats. No unintentional weight loss reported. NEUROLOGICAL: Denies headache, amaurosis fugax, motor weakness, sensory deficit, vertigo/spinning sensation, gait abnormalities, or tremors. ENT: No hearing loss, otalgia, otorrhea, rhinitis, rhinorrhea, hoarseness, or sore throat. CARDIOVASCULAR: Denies any exertional angina, dyspnea on exertion, orthopnea, paroxysmal nocturnal dyspnea, palpitations, life-threatening arrhythmias, claudication. PULMONARY: Denies any shortness of breath, cough, phlegm/sputum, hemoptysis, pleuritic chest pain. SLEEP: Denies morning headaches, daytime somnolence or napping. Denies difficu lty falling asleep, staying asleep, waking from sleep. Denies knowledge of snoring. GASTROINTESTINAL: Denies any type of dysphagia to either liquids or solids. Denies nausea, vomiting, pyrosis, early satiety, abdominal pain, diarrhea, constipation, or changes in stool consistency or caliber. Denies coffee-ground emesis, hematemesis, hematochezia, or melanotic stools. GENITOURINARY: Denies frequency, urgency, nocturia, hematuria or incontinence (Storage/Irritative symptoms.) Low urinary stream, straining to void, urinary intermittency or hesitancy, splitting of the voiding stream, terminal dribbling. ENDOCRINOLOGIC: Denies polyuria, polydipsia, polyphagia or heat/cold intol erances. HEMATOLOGIC: Denies thrombophilia/previous clots, or coagulopathy/bleeding disorders. ONCOLOGIC: Denies personal history of malignancy. DERMATOLOGIC: Denies rashes or pruritus. PSYCHIATRIC: Denies any suicidal or homicidal ideation. Denies hallucinations. PHYSICAL EXAM GENERAL APPEARANCE: The patient is awake, alert, and oriented, in no acute cardiopulmonary distress. NEUROLOGICAL: Cranial nerves II-XII grossly intact. Motor is 5/5 in bilateral upper and lower extremities proximal to distal. No sensory deficits. HEENT: Face is symmetric. Pupils are equal and reactive. Extraocular movements are intact. NECK: Supple. No JVD. No thyromegaly. No submental, submandibular, pre- /postauricular, occipital or supraclavicular lymphadenopathy. CHEST: Normal chest expansion. No Telemetry. LUNGS: Absence of any rales, rhonchi or any wheezing. CARDIOVASCULAR: Regular. S1 and S2 normal. No appreciable rubs, murmurs or gallops. ABDOMEN: Mild tenderness noted on palpation over epigastric and left lower quadrant region Soft, nontender, and nondistended. There is no rebound, vo luntary guarding, or rigidity. : Deferred. No Perdue. EXTREMITIES: Non-edematous and not cyanotic. No clubbing. Good capillary refill. SKIN: No skin breakdown. Vital Signs (last 8hr) Date Time Temp Pulse Resp B/P (MAP) Pulse Ox O2 Delivery O2 Flow Rate FiO2 03/31/25 08:50 98 Room Air* 0 21 03/31/25 08:00 98.1 62 17 150/71 98 Room Air 03/31/25 04:00 97.9 100 20 121/69 97 Room Air LABS: Laboratory: Test 03/31/25 05:25 03/30/25 09:20 03/30/25 06:17 03/29/25 09:41 Range/Units White Blood Count 6.5 4.8-10.8 K/uL Red Blood Count 3.09 L 4.00-5.50 MIL/uL Hemoglobin 9.6 L 12.0-16.0 g/dL Hematocrit 29.8 L 36-48 % Mean Corpuscular Volume 96.4 79-99 fL Mean Corpuscular Hemoglobin 31.1 27.0-33.0 pg Mean Corpuscular Hemoglobin Concent 32.2 32.0-36.0 g/dL Red Cell Distribution Width 15.6 H 11.0-15.5 % Platelet Count 146 130-400 K/uL Mean Platelet Volume 10.5 7.5-10.5 fL Immature Granulocyte % (Auto) 0.3 0-1 % Neutrophils (%) (Auto) 56.3 40.0-77.0 % Lymphocytes (%) (Auto) 31.5 21.0-51.0 % Monocytes (%) (Auto) 9.7 3.0-13.0 % Eosinophils (%) (Auto) 1.4 0.0-8.0 % Basophils (%) (Auto) 0.8 0.0-5.0 % Neutrophils # (Auto) 3.7 1.8-7.7 K/uL Lymphocytes # (Auto) 2.1 1.0-4.8 K/uL Monocytes # (Auto) 0.6 0.1-1.0 K/uL Eosinophils # (Auto) 0.09 0.00-0.70 K/uL Basophils # (Auto) 0.05 0.00-0.20 K/uL Absolute Immature Granulocyte (auto 0.02 0-1 K/uL Nucleated Red Blood Cells 0.0 0.0-0.19 % Reticulocyte Count (auto) 1.70761 0.42-2.23 % Immature Reticulocyte Fraction 12.70 H 0.18-0.48 % Sodium Level 145 136-145 mmol/L Potassium Level 4.0 3.5-5.1 mmol/L Chloride Level 113 H 101-111 mmol/L Carbon Dioxide Level 26 21-32 mmol/L Blood Urea Nitrogen 12 7-18 mg/dL Creatinine 0.8 0.5-1.0 mg/dL Glomerular Filtration Rate Calc 72 >90 mL/min Random Glucose 83 70-105 mg/dL Total Calcium 8.8 8.5-10.1 mg/dL Iron Level 55 50-170 mcg/dL Total Iron Binding Capacity 178 L 250-450 mcg/dL Percent Iron Saturation 30.8 22-44 % Ferritin 21 15-150 ng/mL Vitamin B12 Level 287 193-986 pg/mL Lactic Acid Level 1.7 0.8-2.5 mmol/L Procalcitonin < 0.05 L 0.05-0.5 ng/mL Magnesium Level 1.90 1.80-2.40 mg/dL Urine Color COLORLESS YELLOW Urine Appearance CLEAR CLEAR Urine pH 7.0 5.0-8.0 Urine Specific [place] 1.011 1.001-1.031 Urine Protein NEGATIVE NEGATIVE mg/dL Urine Glucose (UA) NEGATIVE NEGATIVE mg/dL Urine Ketones NEGATIVE NEGATIVE mg/dL Urine Occult Blood +- (TRACE) H NEGATIVE Urine Nitrate NEGATIVE NEGATIVE Urine Bilirubin NEGATIVE NEGATIVE mg/dL Urine Urobilinogen 0.2 0.2-1.0 mg/dL Urine Leukocyte Esterase NEGATIVE NEGATIVE Jesus/uL Urine RBC 2-5 H 0-1 /HPF Urine WBC 0-1 0-1 /HPF Urine Squamous Epithelial Cells RARE 0-2 /HPF Urine Bacteria None None Seen /HPF Test 03/29/25 09:23 Range/Units Total Bilirubin 0.6 0.2-1.0 mg/dL Aspartate Amino Transf (AST/SGOT) 18 10-37 U/L Alanine Aminotransferase (ALT/SGPT) 20 12-78 U/L Alkaline Phosphatase 62 50-136 U/L Troponin I High Sensitivity 18 4-50 ng/L Total Protein 6.9 6.0-8.3 g/dL Albumin 3.6 3.5-5.0 g/dL Current Medications Medications (Trade) Dose Ordered Sig/Travon Route PRN Reason Start Time Stop Time Status Last Admin Dose Admin Acetaminophen (TYLenol 325MG TAB) 650 mg Q4H PRN PO TEMPERATURE GREATER THAN 101.5 5/31/25 12:00 04/28/25 11:59 Acetaminophen (TYLenol 325MG TAB) 650 mg Q6H PRN PO MILD PAIN (1-3) 03/29/25 12:00 04/28/25 11:59 03/30/25 17:21 650 MG Ceftriaxone Sodium (ROCEphine 1G INJ) 1 gm Q24H IVPB 03/30/25 12:00 03/31/25 12:00 03/30/25 12:47 1 GM Dicyclomine HCl (Bentyl 20mg Tab) 10 mg QID PRN PO ABDOMINAL PAIN 03/29/25 12:00 04/28/25 11:59 Enoxaparin Sodium (Lovenox) 40 mg DAILY SQ 03/31/25 09:00 04/30/25 08:59 03/31/25 08:47 40 MG Famotidine (Pepcid 20mg Vial) 20 mg DAILY IV 03/30/25 09:00 04/29/25 08:59 03/31/25 08:47 20 MG Furosemide (LASix 20MG TAB) 20 mg AD PO 03/30/25 09:30 03/30/25 09:20 DC Lactulose (Constulose 20gm/ 30ml Udcup) 20 gm BID PRN PO CONSTIPATION 03/29/25 12:00 04/28/25 11:59 Losartan Potassium (CozAAR 25MG TAB) 25 mg DAILY PO 03/31/25 09:00 04/30/25 08:59 03/31/25 08:47 25 MG Magnesium Sulfate 50 ml @ 0 mls/hr PROTOCOL PRN IV MAGNESIUM PROTOCOL 03/29/25 12:00 04/28/25 11:59 Memantine (NAmenDA 5 MG TAB) 5 mg BID PO 03/30/25 21:00 04/29/25 20:59 03/31/25 08:47 5 MG Ondansetron HCl (zoFRAN 4MG INJ) 4 mg Q6H PRN IVP NAUSEA/VOMITING 03/29/25 12:00 04/28/25 11:59 Potassium Chloride 100 ml @ 50 mls/hr AD PRN IV POTASSIUM PROTOCOL 03/29/25 12:00 04/28/25 11:59 03/30/25 18:47 50 MLS/HR Quetiapine Fumarate (SEROquel 25 mg TAB) 25 mg HS PO 03/30/25 21:00 04/29/25 20:59 03/30/25 19:45 25 MG Sodium Chloride 1,000 ml @ 50 mls/hr Q20H IV 03/29/25 12:00 04/28/25 11:59 03/30/25 08:44 50 MLS/HR DIAGNOSTICS / RADIOLOGY: [ ] ASSESSMENT: Intractable left lower quadrant pain, POA, resolving Systemic inflammatory response syndrome, POA Diverticulosis as per CT abdomen on 03/29/2025 Chronic Constipation, POA Loss of appetite, POA Chronic Anemia, POA Mild right lower lobe infiltrates as per chest x-ray on 03/29/2025 Functional quadriplegia, POA History of Alzheimer's dementia PLAN: SIRS, POA Continue with IV fluids with NS at 50 mL/hr Continue broad-spectrum antibiotic with Rocephin1 g daily Urinalysis negative for infection Follow up on blood culture results Chronic Constipation, POA Continue lactulose 20 g b.i.d. p.r.n. for constipation Chronic Anemia, POA Hemoglobin currently at 11 Monitor H&H Low iron levels as per lab results in 2020 We will repeat anemia panel Mild right lower lobe infiltrates as per chest x-ray on 03/29/2025 We will Monitor for any signs of infection Saturating well greater than 95% on room air Plan to repeat chest x-ray later No recent previous x-rays available for comparison Alzheimer's dementia Continue home Medication memantine 5 mg We will request physical therapy to eval and treat We will request dietary to eval and treat Continue GI and DVT prophylaxis -famotidine 20 mg IV b.i.d. Continue DVT prophylaxis Lovenox 40 SQ daily Home Medications are reconciled Continue Prn medication for nausea /vomiting/ pain Repeat labs in ARMIDA Tello MD Mar 31, 2025 09:14
[2025-03-31 12:00] VITALS: BP 122/54; PULSE 72; RESP 16; TEMP 98.1
[2025-03-31] MEDS ORDERED: AMOX1TAB15 PO (14:23)
--- NOTE | 2025-03-31 14:38 | DS ---
Discharge Summary Hospital Course Summary: This is a case of 85-year-old female with past medical history of early-onset Alzheimer's dementia, cataract, osteoarthritis with history of total knee replacement, rotator cuff surgery, shoulder surgery and functional quadriplegia who was brought to the ER by the daughter after the patient apparently woke up from left lower quadrant pain associated with fever, chills at home. Patient's daughter also reported that the EMS mentioned that she had a fever of 100.4 F. Initial vital signs showed temperature of 98.2 F, pulse 67, respiratory rate 16, blood pressure 153/64, pulse oximetry % on room air. Labs H&H 11.4/35.3, her chemistry were unremarkable. CT abdomen and pelvis did show diverticulosis, No ascites and Fecal material in the colon. Admitted for further evaluation and management. Started on IV fluids and broad-spectrum antibiotic ceftriaxone, p.r.n. medications for pain/fever/nausea/vomiting. Over the course of hospital stay h er abdominal pain has significantly improved. procalcitonin less than 0.05, lactic acid 1.7 Levels were normal, troponin 18. U/S abdomen showed Nonvisualization left kidney, atrophic Right kidney which measures 6.4cm, Changes consistent with prior cholecystectomy,Atherosclerotic vascular disease of the aorta. Chest x-ray revealed mild right lower lung infiltrates consistent with aspiration pneumonia/atelectasis. Urinalysis showed trace occult blood. Blood Culture results were negative. Speech therapy and dietary consult was obtained for further evaluation Today the patient is seen and examined at the bedside. She had an episode of delirium yesterday night [ in patient with dementia]. Vitals Temperature 98.1, pulse rate 62, respiratory rate 17, blood pressure 150/71. Hemoglobin 9.6, anemia panel showed normal iron levels, low TIBC at 178, normal% saturation, ferritin and vitamin B12 levels indicating anemia of chronic disease. She is able to tolerate diet without any nausea/vomiting/choking. Fun ctionally quadriplegic. States that she feels well and has no complaints. She had a bowel movement today. She remained afebrile, hemodynamically stable and clinically improved without respiratory symptoms throughout admission. Based on Aspiration risk, bed-bound status and past similar radiographic findings, empiric course of antibiotics was deemed appropriate. Patient is being di scharged today with prescription of amoxicillin lab 625 mg p.o. b.i.d. for 5 days as empiric treatment. Continue home medications. Stool softeners/laxatives p.r.n. to maintain bowel regularity. Advised to follow up with PCP within 2-3 days and repeat chest x-ray to confirm resolution of infiltrates Procedure(s): SERVICE 0901 REASON: ABD PAIN ORDERING PHYSICIAN: KIM GO MD PROCEDURE: ABD PEL WO - CT ABDOMEN/PELVIS W/O CONTRAST CT ABDOMEN/PELVIS W/O CONTRAST HISTORY: Abdomen pain COMPARISON: None TECHNIQUE: Multiple sequential axial images of the abdomen and pelvis were obtained from the dome of the diaphragm through symphysis pubis. Patient was not given contrast through intravenous route. Oral contrast was not given. FINDINGS: No pleural effusion is seen bilaterally. There is no evidence of parenchymal disease or pulmonary nodule of the visualized lower lungs. Degenerative changes of the thoracolumbar spine are present. The heart is not enlarged. Liver measures 11 cm. There is left renal atrophy. Postop changes are seen of the lumbar spine. There is diverticulosis. The liver, spleen, adrenal glands and pancreas are unremarkable. There is no evidence of hydronephrosis bilaterally. No evidence of renal stone is seen. Fecal material is seen in the colon. There are normal size retroperitoneal and mesenteric lymph nodes. No ascites is seen. No CT evidence of acute appendicitis is seen. Atherosclerotic changes are present. Pelvic sidewalls are symmetric bilaterally. Bladder is poorly distended. IMPRESSION: 1. Diverticulosis. No ascites. Fecal material in the colon. SERVICE 1131 REASON: abd pain ORDERING PHYSICIAN: COLLIN WHITLEY PROCEDURE: ABDOMEN - US ABDOMINAL COMPLETE US ABDOMINAL COMPLETE HISTORY: abd pain COMPARISON: None FINDINGS: The liver is unremarkable. The gallbladder is surgically absent. The portal vein is patent and the common duct measures 6 mm. Right kidney is atrophic and measures 6.4 cm in length but there is no hydronephrosis or nephrolithiasis. Left kidney is not visualized and was previously reported to be atrophic. Spleen is unremarkable. The inferior vena cava is patent and there is mild atherosclerotic vascular disease of the aorta. IMPRESSION: Nonvisualization left kidney. Right kidney is atrophic and measures 6.4 cm. Change prior cholecystectomy. Atherosclerotic vascular disease of the aorta. SERVICE 1155 REASON: FEVER AT HOME ORDERING PHYSICIAN: COLLIN WHITLEY PROCEDURE: CXR1VW - CHEST 1VW CHEST 1VW HISTORY: Fever COMPARISON: 03/02/2000 FINDINGS: A frontal projection of the chest was obtained. Mild right lower lung pulmonary infiltrates are seen. The heart is borderline enlarged. Left shoulder prosthesis is seen. Aortic calcifications are seen. IMPRESSION: 1. Mild right lower lung infiltrates. Assessment/Plan: ASSESSMENT: Intractable left lower quadrant pain, POA, resolving Systemic inflammatory response syndrome, POA Diverticulosis as per CT abdomen on 03/29/2025 Chronic Constipation, POA Loss of appetite, POA Chronic Anemia, POA Mild right lower lobe infiltrates as per chest x-ray on 03/29/2025 Suspected Aspiration pneumonia/atelectasis Functional quadriplegia, POA History of Alzheimer's dementia PLAN: ADMISSION DATE : 03/29/2025 DISCHARGE DATE : 03/31/2025 DISPOSITION : Home CONDITION : Stable Frozen Yogurt Maker(s) : None FOLLOW UP APPOINTMENTS : With PCP within 2-3 days PROCEDURES : None IMAGING (s) : Chest x-ray, abdominal ultrasound, CT abdomen/pelvis MICROBIOLOGY : Blood cultures are negative ACTIVITY : Functionally quadriplegic HOME MEDICATIONS : Continue NEW MEDICATIONS : Amoxiclav 625 mg p.o. b.i.d. for 5 days, 10 tablets TEACHING : The patient was instructed to present to the nearest Emergency Department or call 911 should their symptoms return or worsen. Discharge Instructions: Follow up with PCP within 2-3 days Repeat chest x-ray, outpatient to check resolution/persistence of mild right lower lobe infiltrates Follow dietary and speech therapy consult recommendations Increased fluid intake Avoid processed foods Avoid straining, use stool softeners as needed Monitor for symptoms like fever greater than 100.4, bloating, no bowel movement greater than 3 days' or abdominal pain or distention, shortness of breath, cough with sputum or chest pain, signs of confusion, lethargy or weakness and seek immediate medical attention in such scenario Home Medications: Active Scripts Amoxicillin/Potassium Clav (Amox Tr-K Clv 500-125 mg Tab) 500 Mg-125 Mg Tablet, 1 TAB PO BID for 5 Days, #10 TAB 0 Refills Prov:ARMIDA WONG MD 03/31/25 Pantoprazole Sodium (Protonix) 40 Mg Ectab, 40 MG PO DAILY for 30 Days, #30 TAB.EC Prov:KIM GO MD 03/23/22 Reported Medications Ergocalciferol (Vitamin D2) (Vitamin D2) 50 Mcg (2000 Unit) Tablet, 1 TAB PO DAILY for 30 Days, #30 TAB 0 Refills 03/29/25 Acetaminophen (Tylenol) 500 Mg Tab, 1 TAB PO Q6HPRN PRN for pain or fever for 15 Days, #60 TAB 0 Refills 03/29/25 Cyclosporine (Restasis) 0.05 % Droperette, 1 DROP OP HS for 30 Days, #60 EACH 0 Refills 03/29/25 Furosemide (Furosemide) 20 Mg Tablet, 1 TAB PO AD for 30 Days, #30 TAB 0 Refills 03/29/25 Quetiapine Fumarate (Quetiapine Fumarate) 25 Mg Tablet, 0.5 TAB PO HS for 30 Days, #30 TAB 0 Refills 03/29/25 Memantine HCl (Memantine HCl) 5 Mg Tablet, 5 MG PO BID, TAB 12/23/22 Losartan Potassium (Losartan Potassium) 25 Mg Tablet, 25 MG PO DAILY, TAB 05/16/21 Discontinued Reported Medications Meloxicam (Mobic) 15 Mg Tablet, 7.5 MG PO DAILY, TAB 05/16/21 Discontinued Scripts Diclofenac Sodium (Voltaren Arthritis Pain) 1 % Gel..gram., 20 GM TP BID for 60 Days, #1 TUBE Prov:KIM GO MD 04/15/24 Ibuprofen (Ibuprofen) 400 Mg Tablet, 400 MG PO QIDP PRN for PAIN for 7 Days, #30 TAB Prov:JINA TOMLINSON DO 03/20/24 Cyclobenzaprine HCl (Flexeril) 10 Mg Tab, 5 MG PO TID PRN for muscle spasm for 7 Days, #21 TAB 0 Refills Prov:JINA TOMLINSON DO 03/20/24 Cephalexin Monohydrate (Keflex) 500 Mg Cap, 500 MG PO QID for 7 Days, #28 CAP Prov:KIM GO MD 03/02/24 Levofloxacin (Levofloxacin) 500 Mg Tablet, 500 MG PO DAILY, #7 TAB 0 Refills Prov:COLLIN WHITLEY AGPCNP 12/25/22 Ondansetron (Ondansetron Odt) 4 Mg Tab.rapdis, 4 MG PO TID PRN for NAUSEA, #15 TAB 0 Refills Prov:DONTRELL VALERIO MD 12/18/22 Nirmatrelvir/Ritonavir (Paxlovid Co-Pack (Eua)) 1 Each Tablet, 1 EACH PO BID for 5 Days, #10 COMB.PKG 0 Refills Prov:DONTRELL VALERIO MD 12/18/22 Time spent arranging discharge: 31-60 minutes ATTESTATION BY PHYSICIAN I have seen and examined the patient. I reviewed the documentation, medical decision making, and treatment plan as noted by the resident above. I agree with the findings and plan of care. Manoj Gomez MD, PRIYANKA MD Mar 31, 2025 14:38
--- NOTE | 2025-03-31 15:54 | NUR ---
Nutritional Note: Chart, labs and meds reviewed. RD consulted to speak with pt caregiver. Pt daughter at bedside requesting info on diverticulitis, RD discusses diet guidlines and areas to improve PO intake. Pt is at high risk of developing PCM due to chronic disease and poor energy intake. Pt daughter agreed to small high dense high fiber foods. RD phone number provided. Recommend: - Electrolyte replacements per protocol -Monitor feeding tolerance, %, wt, and labs -Document PO intake and wt daily. -If No BM >3days consider bowel stimulant. -Schedule outpatient RD f/u for long-term nutrition care. - Notify RD if additional nutrition concerns arise. Addendum: 03/31/25 at [address] Amended: Links added.
[2025-03-31 16:00] VITALS: BP 138/68; PULSE 80; RESP 19; TEMP 98.4
--- NOTE | 2025-03-31 17:00 | NUR ---
BEDSIDE SWALLOW EVAL COMPLETED. No s/s of aspiration. Recommend minced and moist solids, thin liquids and pills whole with liquids as tolerated. Compensatory strategies: 1. sit upright during oral intake 2. small bites/sips 3. slow oral intake 4. frequent small meals SHOW GIRL reviewed results and recommendations with patient, family and nurse Paul. SHOW GIRL educated patient on risks and consequences of aspiration. Speech therapy not warranted at this time. All questions answered. Addendum: 03/31/[address] [facility] HOANG Amended: Links added.
--- NOTE | 2025-03-31 18:22 | NUR ---
DISCHARGE PERIPHERAL IV DISCONTINUED DISCHARGE INSTRUCTIONS AND EDUCATION PROVIDED TO PATIENT AND FAMILY PATIENT AND FAMILY AWARE TO FOLLOW UP WITH PCP IN 2-3 DAYS PATIENT AND FAMILY AWARE TO COMMUNICATIONS DEPARTMENT CHAIRPERSON NEW PRESCRIPTIONS AT PREFERRED PHARMACY ALL QUESTIONS ANSWERED.
== END 2025-03-31 18:30 | disposition home or self-care (01) ==
LOC: EDH 08:57 → INTOOBSV 11:28 → EDHIP 11:28 → 3CH 13:30
PROVIDERS: ADMIT Internal Medicine; ATTEND Internal Medicine
DX: K59.00 Constipation, unspecified (principal); K57.30 Diverticulosis of large intestine without perforation or abscess without bleeding; R53.2 Functional quadriplegia; R65.10 Systemic inflammatory response syndrome (SIRS) of non-infectious origin without acute organ dysfunction; D63.8 Anemia in other chronic diseases classified elsewhere; R63.0 Anorexia; N26.1 Atrophy of kidney (terminal); F05 Delirium due to known physiological condition; J69.0 Pneumonitis due to inhalation of food and vomit; J98.11 Atelectasis; G30.0 Alzheimer's disease with early onset; F02.80 Dementia in other diseases classified elsewhere, unspecified severity, without behavioral disturbance, psychotic disturbance, mood disturbance, and anxiety; R91.8 Other nonspecific abnormal finding of lung field; I10 Essential (primary) hypertension; G89.29 Other chronic pain; Z98.890 Other specified postprocedural states; Z79.899 Other long term (current) drug therapy; Z90.49 Acquired absence of other specified parts of digestive tract; Z68.24 Body mass index [BMI] 24.0-24.9, adult
CPT/HCPCS: 96361 ×5; 96365; 99284; 84484; 80053; 85025 ×3; 87040 ×2; 81001; 36415 ×3; 71045; 74176; 76700; 93005; 96366 ×2; 96375; 83735; 80048 ×2; 83605; 84145; 96376; 96372; 82728; 82607; 92610; G0378 ×55; J0696 ×3; J3490 ×2; J7030; J3480; J1650; 99285